=== PATIENT | male | born 1955 | race African-American/Black ===

== ENCOUNTER 2021-04-14 06:25 | Inpatient (IN) | payer OTHER, MEDICAID ==
[~2021-04-14] VITALS: Ht 177.8 cm; Wt 111.1 kg
[2021-04-14] MEDS ORDERED: ACETAMINOPHEN 325MG TABLET PO STA (07:01)
[2021-04-14 07:14] LABS: HEMATOCRIT. 46.4 % (42.0-52.0); HEMOGLOBIN. 15.4 g/dL (14.0-18.0); MEAN CORPUSCULAR HEMOGLOBIN 25.7 pg (28.0-32.0); MEAN CORPUSCULAR VOLUME 77.3 fL (80.0-94.0); MEAN PLATELET VOLUME 9.1 fl (7.4-10.4); PLATELET 226 x1000/uL (130-400); RED CELL DISTRIBUTION WIDTH 15.3 % (11.6-14.6)
[2021-04-14 07:20] LABS: CHLORIDE 101 mEq/L (98-107)
[2021-04-14 07:28] LABS: D-DIMER 1.8 mg/L FEU (<0.50); PROTHROMBIN TIME 10.9 sec (9.6-11.0)
[2021-04-14 07:29] LABS: CREATINE KINASE 817 IU/L (39-308)
[2021-04-14] MEDS ORDERED: PIPERACILLIN/TAZ 3.375G PREMIX 50 ML IV ONE (08:30)
[2021-04-14] MEDS ORDERED: VANCOMYCIN 1 G PREMIX 200 ML IV ONE (08:30)
[2021-04-14 09:23] LABS: BG BASE EXCESS 3.7 mmol/L (-2.0-2.0); BG CARBOXYHEMOGLOBIN 0.8 % (0.5-1.5); BG DEOXYHEMOGLOBIN 15.3 % (0.0-5.0); BG FRACTION INSPIRED OXYGEN 100; BG HCO3 ACT 28.1 mmol/L (22.0-26.0); BG METHEMOGLOBIN 0.2 % (0.0-1.5); BG OXYGEN SATURATION 84.5 % (92.0-98.5); BG OXYHEMOGLOBIN 83.7 % (94.0-97.0); BG PCO2 41.5 mmHg (35.0-45.0); BG PH 7.449 (7.350-7.450); BG SAMPLE SITE RIGHT RADIAL; BG TOTAL HEMOGLOBIN 15.9 g/dL (12.0-18.0); BG VENT MODE MASK - NRB
[2021-04-14] MEDS ORDERED: ONDANSETRON HCL 4MG/2ML INJ IV PRN (10:30)
[2021-04-14] MEDS ORDERED: MAGNESIUM/ALUMINUM HYDROXIDE/SIMETHICONE 30ML UDC PO PRN (10:30)
[2021-04-14] MEDS ORDERED: NA PHOS,M-B/NA PHOS,DI-BA ENEMA 118ML PR PRN (10:30)
[2021-04-14] MEDS ORDERED: GUAIFENESIN 200MG/10ML SUGAR FREE UDC PO PRN (10:30)
[2021-04-14] MEDS ORDERED: KETOROLAC 15MG/ML VIAL IV PRN (10:30)
[2021-04-14] MEDS ORDERED: NITROGLYCERIN 0.4MG TABLET SL SL PRN (10:30)
[2021-04-14] MEDS ORDERED: ALBUTEROL 6.7GM HFA INHALER ORI PRN (10:30)
[2021-04-14] MEDS ORDERED: ENOXAPARIN 40MG/0.4ML SYR SUBCUT SCH (10:30)
[2021-04-14 10:41] LABS: PLATELET ESTIMATE NORMAL
[2021-04-14 11:09] LABS: FOLIC ACID (FOLATE) SERUM >20 ng/mL ng/mL (>5.38)
[2021-04-14 11:21] LABS: VITAMIN B12 SERUM 487 pg/mL (211-911)
[2021-04-14] MEDS: GUAIFENESIN/DM 600MG/30MG ER TAB 12HR PO SCH ×2 (11:52→21:48)
[2021-04-14] MEDS: DEXAMETHASONE 10 MG/ML VIAL IV SCH (11:52)
[2021-04-14] MEDS: ACETAMINOPHEN 325MG TABLET PO PRN (11:53)
[2021-04-14] MEDS: ASPIRIN 325MG EC TABLET PO SCH (11:53)
[2021-04-14] MEDS ORDERED: CEFTRIAXONE 1 G PREMIX 50 ML IV SCH (12:00)
[2021-04-14] MEDS ORDERED: AZITHROMYCIN 500 MG in DEXT 5% WATER 250 ML IV SCH (12:00)
[2021-04-14] MEDS: ZINC SULFATE 220 MG ( 50 ) CAPSULE PO SCH (13:16)
[2021-04-14] MEDS: ENOXAPARIN 30MG/0.3ML SYR SUBCUT SCH ×2 (13:16→21:55)
[2021-04-14] MEDS: CHOLECALCIFEROL (D3) 1000 UNIT TABLET PO SCH (13:17)
[2021-04-14] MEDS: INSULIN LISPRO 100 UNITS/ML SUBCUT SCH ×3 (13:57→21:50)
[2021-04-14] MEDS: BLOOD SUGAR DIAGNOSTIC STRIP TEST SCH ×3 (13:57→21:45)
[2021-04-14] MEDS: ALBUTEROL 6.7GM HFA INHALER ORI SCH ×2 (15:25→19:24)
[2021-04-14 16:43] LABS: CLARITY URINE TURBID (CLEAR); COLOR URINE DARK YELLOW (YELLOW); KETONES URINE 1+ (NEGATIVE); LEUKOCYTE ESTERASE URINE TRACE (NEGATIVE); NITRITE URINE NEGATIVE (NEGATIVE); OCCULT BLOOD URINE 3+ (NEGATIVE); PH URINE 5.5 (4.5-8.0); PROTEIN URINE 4+ (NEGATIVE); SPECIFIC GRAVITY URINE 1.053 (1.005-1.030)
[2021-04-14 16:54] LABS: *AMPHETAMINES SCREEN URINE NEGATIVE (NEGATIVE)
[2021-04-14 16:55] LABS: *BARBITURATES SCREEN URINE NEGATIVE (NEGATIVE); *BENZODIAZEPINES SCREEN URINE NEGATIVE (NEGATIVE); *COCAINE SCREEN URINE NEGATIVE (NEGATIVE); CANNABINOID URINE SCREEN NEGATIVE (NEGATIVE); METHADONE URINE SCREEN NEGATIVE (NEGATIVE); OPIATES URINE SCREEN NEGATIVE (NEGATIVE); PHENCYCLIDINE URINE SCREEN NEGATIVE (NEGATIVE)
[2021-04-14 17:28] LABS: CREATINE KINASE 635 IU/L (39-308)
[2021-04-14 17:29] LABS: CREATINE KINASE MB FRACTION 1.8 ng/mL (0.5-3.6)
[2021-04-14] MEDS ORDERED: ZOLPIDEM TARTRATE 5MG TABLET PO PRN (21:00)
[2021-04-14] MEDS: ASCORBIC ACID 500 MG TABLET PO SCH (21:48)
[2021-04-14] MEDS: FAMOTIDINE 20MG TABLET PO SCH (21:48)
[2021-04-14 23:58] LABS: CREATINE KINASE 577 IU/L (39-308)
[2021-04-15] VITALS (46 sets, daily range): BP systolic 119–170; BP diastolic 34–104
[2021-04-15] MEDS: ALBUTEROL 6.7GM HFA INHALER ORI SCH ×4 (00:19→20:40)
[2021-04-15 00:34] LABS: CREATINE KINASE MB FRACTION 1.9 ng/mL (0.5-3.6)
[2021-04-15] MEDS: ACETAMINOPHEN 325MG TABLET PO PRN ×2 (01:52→08:52)
[2021-04-15 05:25] LABS: CHLORIDE 101 mEq/L (98-107)
[2021-04-15 05:26] LABS: HEMATOCRIT. 47.4 % (42.0-52.0); HEMOGLOBIN. 15.6 g/dL (14.0-18.0); MEAN CORPUSCULAR HEMOGLOBIN 26.1 pg (28.0-32.0); MEAN CORPUSCULAR VOLUME 79.4 fL (80.0-94.0); MEAN PLATELET VOLUME 10.3 fl (7.4-10.4); PLATELET 178 x1000/uL (130-400); RED BLOOD CELL COUNT 5.96 mill/uL (4.7-6.1); RED CELL DISTRIBUTION WIDTH 15.7 % (11.6-14.6)
[2021-04-15] MEDS: CLONIDINE 0.1MG TABLET PO PRN (05:32)
[2021-04-15 05:36] LABS: PHOSPHORUS 2.7 mg/dL (2.5-4.9)
[2021-04-15] MEDS: BLOOD SUGAR DIAGNOSTIC STRIP TEST SCH ×4 (06:42→21:10)
[2021-04-15] MEDS: INSULIN LISPRO 100 UNITS/ML SUBCUT SCH ×4 (06:47→21:16)
[2021-04-15] MEDS ORDERED: GLIP5TAB12 PO (07:34)
[2021-04-15] MEDS ORDERED: LOSA1TAB34 PO (07:34)
[2021-04-15] MEDS ORDERED: AMLO2.5T45 PO (07:34)
[2021-04-15] MEDS ORDERED: METF-416 PO (07:39)
[2021-04-15] MEDS: CHOLECALCIFEROL (D3) 1000 UNIT TABLET PO SCH (08:52)
[2021-04-15] MEDS: ASCORBIC ACID 500 MG TABLET PO SCH ×2 (08:52→21:03)
[2021-04-15] MEDS: ZINC SULFATE 220 MG ( 50 ) CAPSULE PO SCH (08:52)
[2021-04-15] MEDS: ASPIRIN 325MG EC TABLET PO SCH (08:52)
[2021-04-15] MEDS: DEXAMETHASONE 10 MG/ML VIAL IV SCH (08:52)
[2021-04-15] MEDS: FAMOTIDINE 20MG TABLET PO SCH ×2 (08:52→21:03)
[2021-04-15] MEDS: GUAIFENESIN/DM 600MG/30MG ER TAB 12HR PO SCH ×2 (08:52→21:03)
[2021-04-15] MEDS: ENOXAPARIN 30MG/0.3ML SYR SUBCUT SCH ×2 (08:54→21:03)
[2021-04-15 10:40] LABS: PLATELET ESTIMATE NORMAL
[2021-04-15 10:42] LABS: BG BASE EXCESS 3.6 mmol/L (-2.0-2.0); BG CARBOXYHEMOGLOBIN 0.6 % (0.5-1.5); BG DEOXYHEMOGLOBIN 9.8 % (0.0-5.0); BG FRACTION INSPIRED OXYGEN 100; BG HCO3 ACT 26.9 mmol/L (22.0-26.0); BG METHEMOGLOBIN 0.3 % (0.0-1.5); BG OXYGEN SATURATION 90.1 % (92.0-98.5); BG OXYHEMOGLOBIN 89.3 % (94.0-97.0); BG PCO2 36.5 mmHg (35.0-45.0); BG PH 7.485 (7.350-7.450); BG PO2 54.9 mmHg (75.0-100.0); BG SAMPLE SITE RIGHT RADIAL; BG VENT MODE MASK - CPAP
[2021-04-15] MEDS: CEFTRIAXONE 1,000 MG in DEXTROSE 5% WATER 50 ML IV SCH (12:46)
[2021-04-15] MEDS: AZITHROMYCIN 500 MG in DEXT 5% WATER 250 ML IV SCH (12:46)
[2021-04-15] MEDS ORDERED: INSULIN LISPRO 100 UNITS/ML SUBCUT SCH (21:00)
[2021-04-16] VITALS (35 sets, daily range): BP systolic 105–160; BP diastolic 52–117
[2021-04-16] MEDS: ALBUTEROL 6.7GM HFA INHALER ORI SCH ×4 (01:06→18:00)
[2021-04-16] MEDS: CLONIDINE 0.1MG TABLET PO PRN ×2 (02:41→09:18)
[2021-04-16] MEDS: BLOOD SUGAR DIAGNOSTIC STRIP TEST SCH ×4 (06:09→21:28)
[2021-04-16] MEDS: INSULIN LISPRO 100 UNITS/ML SUBCUT SCH ×4 (06:14→21:23)
[2021-04-16] MEDS: ASPIRIN 325MG EC TABLET PO SCH (09:18)
[2021-04-16] MEDS: GUAIFENESIN/DM 600MG/30MG ER TAB 12HR PO SCH ×2 (09:18→21:26)
[2021-04-16] MEDS: FAMOTIDINE 20MG TABLET PO SCH ×2 (09:18→21:26)
[2021-04-16] MEDS: ENOXAPARIN 30MG/0.3ML SYR SUBCUT SCH ×2 (09:19→21:28)
[2021-04-16] MEDS: CHOLECALCIFEROL (D3) 1000 UNIT TABLET PO SCH (09:19)
[2021-04-16] MEDS: DOCUSATE SODIUM 100MG CAPSULE PO PRN (09:19)
[2021-04-16] MEDS: ASCORBIC ACID 500 MG TABLET PO SCH ×2 (09:20→21:26)
[2021-04-16] MEDS: DEXAMETHASONE 10 MG/ML VIAL IV SCH (09:20)
[2021-04-16] MEDS: ZINC SULFATE 220 MG ( 50 ) CAPSULE PO SCH (09:20)
[2021-04-16] MEDS: AZITHROMYCIN 500 MG in DEXT 5% WATER 250 ML IV SCH (11:59)
[2021-04-16] MEDS: CEFTRIAXONE 1,000 MG in DEXTROSE 5% WATER 50 ML IV SCH (12:05)
[2021-04-16] MEDS: NITROGLYCERIN OINT 1GM/INCH UDPKT TD SCH ×2 (14:30→21:26)
[2021-04-17] VITALS (32 sets, daily range): BP systolic 125–202; BP diastolic 59–121
[2021-04-17] MEDS: CLONIDINE 0.1MG TABLET PO PRN (05:17)
[2021-04-17] MEDS: NITROGLYCERIN OINT 1GM/INCH UDPKT TD SCH ×3 (05:40→21:09)
[2021-04-17] MEDS: INSULIN LISPRO 100 UNITS/ML SUBCUT SCH ×4 (07:00→20:45)
[2021-04-17] MEDS: BLOOD SUGAR DIAGNOSTIC STRIP TEST SCH ×4 (07:14→20:46)
[2021-04-17] MEDS: ALBUTEROL 6.7GM HFA INHALER ORI SCH ×3 (08:20→15:03)
[2021-04-17] MEDS: GUAIFENESIN/DM 600MG/30MG ER TAB 12HR PO SCH ×2 (08:53→20:44)
[2021-04-17] MEDS: ZINC SULFATE 220 MG ( 50 ) CAPSULE PO SCH (08:53)
[2021-04-17] MEDS: DEXAMETHASONE 10 MG/ML VIAL IV SCH (08:53)
[2021-04-17] MEDS: ENOXAPARIN 30MG/0.3ML SYR SUBCUT SCH ×2 (08:53→20:43)
[2021-04-17] MEDS: CHOLECALCIFEROL (D3) 1000 UNIT TABLET PO SCH (08:53)
[2021-04-17] MEDS: FAMOTIDINE 20MG TABLET PO SCH ×2 (08:54→20:44)
[2021-04-17] MEDS: ASPIRIN 325MG EC TABLET PO SCH (08:54)
[2021-04-17] MEDS: ASCORBIC ACID 500 MG TABLET PO SCH ×2 (08:54→20:44)
[2021-04-17 09:41] LABS: BG BASE EXCESS 2.5 mmol/L (-2.0-2.0); BG CARBOXYHEMOGLOBIN 0.3 % (0.5-1.5); BG DEOXYHEMOGLOBIN 21.1 % (0.0-5.0); BG FRACTION INSPIRED OXYGEN 100; BG HCO3 ACT 25.3 mmol/L (22.0-26.0); BG METHEMOGLOBIN 0.3 % (0.0-1.5); BG OXYGEN SATURATION 78.8 % (92.0-98.5); BG OXYHEMOGLOBIN 78.3 % (94.0-97.0); BG PCO2 33.8 mmHg (35.0-45.0); BG PH 7.492 (7.350-7.450); BG PO2 41.3 mmHg (75.0-100.0); BG SAMPLE SITE RIGHT BRACHIAL; BG TOTAL HEMOGLOBIN 15.5 g/dL (12.0-18.0); BG VENT MODE MASK - BIPAP
[2021-04-17] MEDS: AZITHROMYCIN 500 MG in DEXT 5% WATER 250 ML IV SCH (11:44)
[2021-04-17 12:01] LABS: BG BASE EXCESS 4.1 mmol/L (-2.0-2.0); BG CARBOXYHEMOGLOBIN 0.7 % (0.5-1.5); BG DEOXYHEMOGLOBIN 14.3 % (0.0-5.0); BG FRACTION INSPIRED OXYGEN 100; BG HCO3 ACT 27.7 mmol/L (22.0-26.0); BG METHEMOGLOBIN 0.2 % (0.0-1.5); BG OXYGEN SATURATION 85.6 % (92.0-98.5); BG OXYHEMOGLOBIN 84.8 % (94.0-97.0); BG PCO2 38.1 mmHg (35.0-45.0); BG PH 7.479 (7.350-7.450); BG PO2 50.3 mmHg (75.0-100.0); BG SAMPLE SITE RIGHT BRACHIAL; BG VENT MODE MASK - BIPAP
[2021-04-17] MEDS: CEFTRIAXONE 1,000 MG in DEXTROSE 5% WATER 50 ML IV SCH (13:47)
[2021-04-18] VITALS (66 sets, daily range): BP systolic 56–158; BP diastolic 19–105
[2021-04-18] MEDS ORDERED: LORAZEPAM 2MG/ML CPJ IV ONE (03:30)
[2021-04-18 05:26] LABS: HEMATOCRIT. 49.2 % (42.0-52.0); HEMOGLOBIN. 16.6 g/dL (14.0-18.0); MEAN CORPUSCULAR HEMOGLOBIN 28.3 pg (28.0-32.0); MEAN CORPUSCULAR VOLUME 83.8 fL (80.0-94.0); RED BLOOD CELL COUNT 5.87 mill/uL (4.7-6.1); RED CELL DISTRIBUTION WIDTH 15.5 % (11.6-14.6)
[2021-04-18 05:32] LABS: CHLORIDE 101 mEq/L (98-107)
[2021-04-18] MEDS ORDERED: ADENOSINE 3 MG/ML 2ML VIAL IV SCH (06:45)
[2021-04-18] MEDS: PROPOFOL 10MG/ML 100ML 100 ML IV PRN ×3 (06:55→09:37)
[2021-04-18] MEDS: BLOOD SUGAR DIAGNOSTIC STRIP TEST SCH ×4 (07:19→21:00)
[2021-04-18] MEDS: NITROGLYCERIN OINT 1GM/INCH UDPKT TD SCH (07:28)
[2021-04-18] MEDS: INSULIN LISPRO 100 UNITS/ML SUBCUT SCH ×4 (07:29→22:11)
[2021-04-18] MEDS ORDERED: SUCCINYLCHOLINE CHLORIDE 200MG/10ML IV ONE (08:04)
[2021-04-18] MEDS ORDERED: ETOMIDATE 2MG/ML 10ML VIAL IV ONE ×2 (08:04→08:42)
[2021-04-18] MEDS: DILTIAZEM HCL 30MG TABLET PO SCH ×3 (08:30→22:00)
[2021-04-18] MEDS ORDERED: VECURONIUM BROMIDE 10 MG/VIAL IV ONE (08:42)
[2021-04-18] MEDS: CHOLECALCIFEROL (D3) 1000 UNIT TABLET PO SCH (09:00)
[2021-04-18] MEDS: FAMOTIDINE 20MG TABLET PO SCH ×2 (09:00→22:08)
[2021-04-18] MEDS: ZINC SULFATE 220 MG ( 50 ) CAPSULE PO SCH (09:00)
[2021-04-18] MEDS: ASCORBIC ACID 500 MG TABLET PO SCH ×2 (09:00→22:08)
[2021-04-18] MEDS: ASPIRIN 325MG EC TABLET PO SCH (09:00)
[2021-04-18] MEDS: GUAIFENESIN/DM 600MG/30MG ER TAB 12HR PO SCH ×2 (09:00→22:07)
[2021-04-18] MEDS: PHENYLEPHRINE 100 MG in DEXT 5% WATER 240 ML IV PRN ×2 (09:15→16:04)
[2021-04-18] MEDS: FENTANYL CITRATE/PF 2,500 MCG in SODIUM CHLORIDE 0.9% 200 ML IV PRN ×2 (09:16→21:39)
[2021-04-18 10:10] LABS: BG CARBOXYHEMOGLOBIN 0.3 % (0.5-1.5); BG DEOXYHEMOGLOBIN 17.5 % (0.0-5.0); BG FRACTION INSPIRED OXYGEN 100; BG HCO3 ACT 28.5 mmol/L (22.0-26.0); BG METHEMOGLOBIN 0.3 % (0.0-1.5); BG OXYGEN SATURATION 82.4 % (92.0-98.5); BG OXYHEMOGLOBIN 81.9 % (94.0-97.0); BG PCO2 56.9 mmHg (35.0-45.0); BG PH 7.318 (7.350-7.450); BG PO2 53.7 mmHg (75.0-100.0); BG TOTAL HEMOGLOBIN 15.1 g/dL (12.0-18.0); BG TOTAL RESPIRATORY RATE 25 b/min; BG VENT MODE VENT - AC
[2021-04-18 10:16] LABS: PLATELET 504 x1000/uL (130-400)
[2021-04-18 10:17] LABS: PLATELET ESTIMATE INCREASED
[2021-04-18] MEDS: MIDAZOLAM HCL 100 MG in SODIUM CHLORIDE 0.9% 80 ML IV PRN ×2 (10:50→21:37)
[2021-04-18] MEDS ORDERED: VASOPRESSIN 20 UNIT in SODIUM CHLORIDE 0.9% 99 ML IV PRN (11:00)
[2021-04-18] MEDS: AZITHROMYCIN 500 MG in DEXT 5% WATER 250 ML IV SCH (12:21)
[2021-04-18] MEDS: DEXAMETHASONE 10 MG/ML VIAL IV SCH (12:41)
[2021-04-18] MEDS: ENOXAPARIN 30MG/0.3ML SYR SUBCUT SCH ×2 (12:41→22:09)
[2021-04-18] MEDS: CEFTRIAXONE 1,000 MG in DEXTROSE 5% WATER 50 ML IV SCH (12:50)
[2021-04-18] MEDS: IPRATROPIUM BROMIDE (0.02%) 0.5MG/2.5ML NEB HHN SCH ×3 (13:00→21:19)
[2021-04-18 15:07] LABS: BG BASE EXCESS 1.9 mmol/L (-2.0-2.0); BG CARBOXYHEMOGLOBIN 0.7 % (0.5-1.5); BG DEOXYHEMOGLOBIN 13.3 % (0.0-5.0); BG FRACTION INSPIRED OXYGEN 100; BG HCO3 ACT 28.3 mmol/L (22.0-26.0); BG METHEMOGLOBIN 0.3 % (0.0-1.5); BG OXYGEN SATURATION 86.6 % (92.0-98.5); BG OXYHEMOGLOBIN 85.7 % (94.0-97.0); BG PCO2 50.9 mmHg (35.0-45.0); BG PH 7.363 (7.350-7.450); BG PO2 55.5 mmHg (75.0-100.0); BG SAMPLE SITE LEFT RADIAL; BG TOTAL HEMOGLOBIN 15.3 g/dL (12.0-18.0); BG TOTAL RESPIRATORY RATE 28 b/min; BG VENT MODE VENT - AC
[2021-04-18] MEDS: ATORVASTATIN CALCIUM 20MG TABLET PO SCH (22:08)
[2021-04-19] VITALS (89 sets, daily range): BP systolic 83–163; BP diastolic 47–96
[2021-04-19] MEDS: IPRATROPIUM BROMIDE (0.02%) 0.5MG/2.5ML NEB HHN SCH ×6 (01:16→20:39)
[2021-04-19 05:57] LABS: HEMATOCRIT. 40.8 % (42.0-52.0); HEMOGLOBIN. 13.7 g/dL (14.0-18.0); MEAN CORPUSCULAR HEMOGLOBIN 29.8 pg (28.0-32.0); MEAN CORPUSCULAR VOLUME 88.7 fL (80.0-94.0); PLATELET 335 x1000/uL (130-400); RED CELL DISTRIBUTION WIDTH 16.4 % (11.6-14.6)
[2021-04-19] MEDS: DILTIAZEM HCL 30MG TABLET PO SCH ×3 (06:00→21:13)
[2021-04-19 06:02] LABS: CHLORIDE 105 mEq/L (98-107)
[2021-04-19] MEDS: BLOOD SUGAR DIAGNOSTIC STRIP TEST SCH ×4 (06:30→21:40)
[2021-04-19] MEDS: INSULIN LISPRO 100 UNITS/ML SUBCUT SCH ×4 (06:34→21:40)
[2021-04-19 07:53] LABS: BG BASE EXCESS 1.5 mmol/L (-2.0-2.0); BG DEOXYHEMOGLOBIN 0.5 % (0.0-5.0); BG HCO3 ACT 26.3 mmol/L (22.0-26.0); BG OXYGEN SATURATION 99.5 % (92.0-98.5); BG OXYHEMOGLOBIN 99.5 % (94.0-97.0); BG PCO2 42.1 mmHg (35.0-45.0); BG PH 7.414 (7.350-7.450); BG PO2 288.4 mmHg (75.0-100.0); BG SAMPLE SITE RIGHT RADIAL; BG TOTAL HEMOGLOBIN 14.7 g/dL (12.0-18.0); BG VENT MODE VENT- PRVC
[2021-04-19] MEDS: ASPIRIN 325MG EC TABLET PO SCH (09:18)
[2021-04-19] MEDS: FAMOTIDINE 20MG TABLET PO SCH ×2 (09:18→21:12)
[2021-04-19] MEDS: CHOLECALCIFEROL (D3) 1000 UNIT TABLET PO SCH (09:18)
[2021-04-19] MEDS: GUAIFENESIN/DM 600MG/30MG ER TAB 12HR PO SCH ×2 (09:18→21:12)
[2021-04-19] MEDS: DEXAMETHASONE 10 MG/ML VIAL IV SCH (09:19)
[2021-04-19] MEDS: ENOXAPARIN 30MG/0.3ML SYR SUBCUT SCH ×2 (09:19→21:13)
[2021-04-19] MEDS: ZINC SULFATE 220 MG ( 50 ) CAPSULE PO SCH (09:19)
[2021-04-19] MEDS: ASCORBIC ACID 500 MG TABLET PO SCH ×2 (09:19→21:12)
[2021-04-19] MEDS: PHENYLEPHRINE 100 MG in DEXT 5% WATER 240 ML IV PRN (09:23)
[2021-04-19] MEDS ORDERED: SODIUM CHLORIDE 0.9% 500 ML IV ONE (12:00)
[2021-04-19] MEDS: FENTANYL CITRATE/PF 2,500 MCG in SODIUM CHLORIDE 0.9% 200 ML IV PRN (13:28)
[2021-04-19 20:34] LABS: PLATELET ESTIMATE NORMAL
[2021-04-19] MEDS: ATORVASTATIN CALCIUM 20MG TABLET PO SCH (21:12)
[2021-04-20] VITALS (96 sets, daily range): BP systolic 97–151; BP diastolic 44–119
[2021-04-20] MEDS: IPRATROPIUM BROMIDE (0.02%) 0.5MG/2.5ML NEB HHN SCH ×6 (00:48→21:11)
[2021-04-20] MEDS: MIDAZOLAM HCL 100 MG in SODIUM CHLORIDE 0.9% 80 ML IV PRN ×2 (01:51→17:02)
[2021-04-20] MEDS: ACETAMINOPHEN 325MG TABLET PO PRN (03:20)
[2021-04-20] MEDS: FENTANYL CITRATE/PF 2,500 MCG in SODIUM CHLORIDE 0.9% 200 ML IV PRN ×2 (03:22→19:20)
[2021-04-20] MEDS: DILTIAZEM HCL 30MG TABLET PO SCH ×3 (06:00→21:20)
[2021-04-20 06:03] LABS: CHLORIDE 108 mEq/L (98-107)
[2021-04-20] MEDS: BLOOD SUGAR DIAGNOSTIC STRIP TEST SCH ×4 (06:26→21:17)
[2021-04-20] MEDS: INSULIN LISPRO 100 UNITS/ML SUBCUT SCH ×4 (06:26→21:19)
[2021-04-20 07:46] LABS: HEMATOCRIT. 39.6 % (42.0-52.0); HEMOGLOBIN. 13.1 g/dL (14.0-18.0); MEAN CORPUSCULAR HEMOGLOBIN 27.5 pg (28.0-32.0); PLATELET 311 x1000/uL (130-400); RED BLOOD CELL COUNT 4.77 mill/uL (4.7-6.1); RED CELL DISTRIBUTION WIDTH 15.7 % (11.6-14.6)
[2021-04-20] MEDS: DEXAMETHASONE 10 MG/ML VIAL IV SCH (08:40)
[2021-04-20] MEDS: ASCORBIC ACID 500 MG TABLET PO SCH ×2 (08:41→21:16)
[2021-04-20] MEDS: ASPIRIN 81MG TABLET PO SCH (08:41)
[2021-04-20] MEDS: FAMOTIDINE 20MG TABLET PO SCH ×2 (08:41→21:16)
[2021-04-20] MEDS: ENOXAPARIN 30MG/0.3ML SYR SUBCUT SCH ×2 (08:41→21:17)
[2021-04-20] MEDS: CHOLECALCIFEROL (D3) 1000 UNIT TABLET PO SCH (08:41)
[2021-04-20] MEDS: ZINC SULFATE 220 MG ( 50 ) CAPSULE PO SCH (08:41)
[2021-04-20] MEDS: GUAIFENESIN/DM 600MG/30MG ER TAB 12HR PO SCH ×2 (08:46→21:16)
[2021-04-20] MEDS ORDERED: ASPIRIN 81MG EC TABLET PO SCH (09:00)
[2021-04-20 09:19] LABS: BG BASE EXCESS 3.9 mmol/L (-2.0-2.0); BG CARBOXYHEMOGLOBIN 1.2 % (0.5-1.5); BG DEOXYHEMOGLOBIN 4.9 % (0.0-5.0); BG FRACTION INSPIRED OXYGEN 50; BG HCO3 ACT 29.8 mmol/L (22.0-26.0); BG METHEMOGLOBIN 0.2 % (0.0-1.5); BG OXYHEMOGLOBIN 93.7 % (94.0-97.0); BG PCO2 49.7 mmHg (35.0-45.0); BG PH 7.396 (7.350-7.450); BG PO2 78.2 mmHg (75.0-100.0); BG SAMPLE SITE RIGHT RADIAL; BG TOTAL HEMOGLOBIN 14.1 g/dL (12.0-18.0); BG TOTAL RESPIRATORY RATE 25 b/min; BG VENT MODE VENT- PRVC
[2021-04-20] MEDS ORDERED: BISACODYL 5MG TABLET PO SCH (10:45)
[2021-04-20] MEDS ORDERED: LACTULOSE 20G/30ML UDC PO NR (11:00)
[2021-04-20] MEDS: BISACODYL 10MG SUPP PR SCH (11:49)
[2021-04-20 13:52] LABS: PLATELET ESTIMATE NORMAL
[2021-04-20] MEDS: ATORVASTATIN CALCIUM 20MG TABLET PO SCH (21:16)
[2021-04-21] VITALS (96 sets, daily range): BP systolic 98–143; BP diastolic 55–80
[2021-04-21] MEDS: IPRATROPIUM BROMIDE (0.02%) 0.5MG/2.5ML NEB HHN SCH ×6 (00:33→21:08)
[2021-04-21] MEDS: DILTIAZEM HCL 30MG TABLET PO SCH (06:00)
[2021-04-21] MEDS: MIDAZOLAM HCL 100 MG in SODIUM CHLORIDE 0.9% 80 ML IV PRN ×2 (06:07→07:59)
[2021-04-21] MEDS: BLOOD SUGAR DIAGNOSTIC STRIP TEST SCH ×4 (06:14→20:27)
[2021-04-21] MEDS: INSULIN LISPRO 100 UNITS/ML SUBCUT SCH ×4 (06:15→20:31)
[2021-04-21 06:58] LABS: HEMATOCRIT. 37.9 % (42.0-52.0); HEMOGLOBIN. 12.4 g/dL (14.0-18.0); MEAN CORPUSCULAR HEMOGLOBIN 26.5 pg (28.0-32.0); MEAN CORPUSCULAR VOLUME 80.8 fL (80.0-94.0); MEAN PLATELET VOLUME 8.7 fl (7.4-10.4); PLATELET 290 x1000/uL (130-400); RED BLOOD CELL COUNT 4.69 mill/uL (4.7-6.1); RED CELL DISTRIBUTION WIDTH 16.1 % (11.6-14.6)
[2021-04-21 07:42] LABS: PLATELET ESTIMATE NORMAL
[2021-04-21 08:03] LABS: BG BASE EXCESS 4.4 mmol/L (-2.0-2.0); BG CARBOXYHEMOGLOBIN 0.6 % (0.5-1.5); BG DEOXYHEMOGLOBIN 4.7 % (0.0-5.0); BG HCO3 ACT 30.2 mmol/L (22.0-26.0); BG METHEMOGLOBIN 0.1 % (0.0-1.5); BG OXYGEN SATURATION 95.3 % (92.0-98.5); BG OXYHEMOGLOBIN 94.6 % (94.0-97.0); BG PCO2 49.9 mmHg (35.0-45.0); BG PO2 78.4 mmHg (75.0-100.0); BG SAMPLE SITE RIGHT RADIAL; BG TOTAL HEMOGLOBIN 13.5 g/dL (12.0-18.0); BG VENT MODE VENT- PRVC
[2021-04-21] MEDS: BISACODYL 10MG SUPP PR SCH ×2 (09:00→09:12)
[2021-04-21] MEDS: DEXAMETHASONE 10 MG/ML VIAL IV SCH (09:11)
[2021-04-21] MEDS: FAMOTIDINE 20MG TABLET PO SCH ×2 (09:12→20:31)
[2021-04-21] MEDS: CHOLECALCIFEROL (D3) 1000 UNIT TABLET PO SCH (09:12)
[2021-04-21] MEDS: ZINC SULFATE 220 MG ( 50 ) CAPSULE PO SCH (09:12)
[2021-04-21] MEDS: GUAIFENESIN/DM 600MG/30MG ER TAB 12HR PO SCH ×2 (09:12→20:31)
[2021-04-21] MEDS: ENOXAPARIN 30MG/0.3ML SYR SUBCUT SCH (09:12)
[2021-04-21] MEDS: ASCORBIC ACID 500 MG TABLET PO SCH ×2 (09:12→20:31)
[2021-04-21] MEDS: ASPIRIN 81MG TABLET PO SCH (09:12)
[2021-04-21] MEDS: FENTANYL CITRATE/PF 2,500 MCG in SODIUM CHLORIDE 0.9% 200 ML IV PRN (09:19)
[2021-04-21] MEDS ORDERED: SODIUM CHLORIDE 0.9% 500 ML IV ONE (09:45)
[2021-04-21] MEDS: ATORVASTATIN CALCIUM 20MG TABLET PO SCH (20:31)
[2021-04-22] VITALS (97 sets, daily range): BP systolic 101–171; BP diastolic 55–109
[2021-04-22] MEDS: IPRATROPIUM BROMIDE (0.02%) 0.5MG/2.5ML NEB HHN SCH ×6 (00:10→20:54)
[2021-04-22] MEDS: MIDAZOLAM HCL 100 MG in SODIUM CHLORIDE 0.9% 80 ML IV PRN ×2 (00:38→15:34)
[2021-04-22] MEDS: FENTANYL CITRATE/PF 2,500 MCG in SODIUM CHLORIDE 0.9% 200 ML IV PRN ×2 (03:10→17:44)
[2021-04-22 05:26] LABS: BASOPHILS % 0.2 % (0.0-2.0); EOSINOPHILS % 0.1 % (0.0-5.0); HEMATOCRIT. 33.9 % (42.0-52.0); HEMOGLOBIN. 11.7 g/dL (14.0-18.0); LYMPHOCYTES % 10.5 % (20.0-50.0); MEAN CORPUSCULAR HEMOGLOBIN 31.7 pg (28.0-32.0); MEAN CORPUSCULAR VOLUME 91.8 fL (80.0-94.0); MEAN PLATELET VOLUME 9.4 fl (7.4-10.4); NEUTROPHILS % 83.2 % (40.0-76.0); PLATELET 325 x1000/uL (130-400); RED BLOOD CELL COUNT 3.69 mill/uL (4.7-6.1); RED CELL DISTRIBUTION WIDTH 15.7 % (11.6-14.6)
[2021-04-22] MEDS: BLOOD SUGAR DIAGNOSTIC STRIP TEST SCH ×4 (06:05→21:46)
[2021-04-22] MEDS: INSULIN LISPRO 100 UNITS/ML SUBCUT SCH ×4 (06:08→22:08)
[2021-04-22] MEDS: DEXAMETHASONE 10 MG/ML VIAL IV SCH (08:18)
[2021-04-22] MEDS: ASCORBIC ACID 500 MG TABLET PO SCH ×2 (08:18→22:07)
[2021-04-22] MEDS: ASPIRIN 81MG TABLET PO SCH (08:19)
[2021-04-22] MEDS: CHOLECALCIFEROL (D3) 1000 UNIT TABLET PO SCH (08:19)
[2021-04-22] MEDS: GUAIFENESIN/DM 600MG/30MG ER TAB 12HR PO SCH ×2 (08:19→22:07)
[2021-04-22] MEDS: ZINC SULFATE 220 MG ( 50 ) CAPSULE PO SCH (08:19)
[2021-04-22] MEDS: FAMOTIDINE 20MG TABLET PO SCH ×2 (08:19→22:07)
[2021-04-22 09:50] LABS: BG BASE EXCESS 6.2 mmol/L (-2.0-2.0); BG DEOXYHEMOGLOBIN 8.8 % (0.0-5.0); BG FRACTION INSPIRED OXYGEN 50; BG METHEMOGLOBIN 0.3 % (0.0-1.5); BG OXYGEN SATURATION 91.1 % (92.0-98.5); BG OXYHEMOGLOBIN 89.9 % (94.0-97.0); BG PCO2 51.3 mmHg (35.0-45.0); BG PH 7.413 (7.350-7.450); BG PO2 63.3 mmHg (75.0-100.0); BG SAMPLE SITE RIGHT RADIAL; BG TOTAL HEMOGLOBIN 12.7 g/dL (12.0-18.0); BG VENT MODE AC/PRVC
[2021-04-22] MEDS: SODIUM CHLORIDE 0.45% 1,000 ML IV SCH (10:38)
[2021-04-22] MEDS: CLONIDINE 0.1MG TABLET PO PRN (14:00)
[2021-04-22] MEDS: PROPOFOL 10MG/ML 100ML 100 ML IV PRN ×2 (14:48→19:19)
[2021-04-22] MEDS: ATORVASTATIN CALCIUM 20MG TABLET PO SCH (22:07)
[2021-04-23] VITALS (96 sets, daily range): BP systolic 107–169; BP diastolic 53–105
[2021-04-23] MEDS: IPRATROPIUM BROMIDE (0.02%) 0.5MG/2.5ML NEB HHN SCH ×6 (00:55→21:00)
[2021-04-23] MEDS: MIDAZOLAM HCL 100 MG in SODIUM CHLORIDE 0.9% 80 ML IV PRN ×2 (02:17→14:32)
[2021-04-23] MEDS: FENTANYL CITRATE/PF 2,500 MCG in SODIUM CHLORIDE 0.9% 200 ML IV PRN ×3 (03:01→20:26)
[2021-04-23] MEDS: SODIUM CHLORIDE 0.45% 1,000 ML IV SCH (03:02)
[2021-04-23 05:39] LABS: HEMATOCRIT. 32.1 % (42.0-52.0); HEMOGLOBIN. 11.2 g/dL (14.0-18.0); MEAN CORPUSCULAR HEMOGLOBIN 32.5 pg (28.0-32.0); MEAN CORPUSCULAR VOLUME 93.2 fL (80.0-94.0); MEAN PLATELET VOLUME 9.4 fl (7.4-10.4); PLATELET 292 x1000/uL (130-400); RED BLOOD CELL COUNT 3.44 mill/uL (4.7-6.1); RED CELL DISTRIBUTION WIDTH 15.9 % (11.6-14.6)
[2021-04-23] MEDS: BLOOD SUGAR DIAGNOSTIC STRIP TEST SCH ×4 (06:06→20:25)
[2021-04-23] MEDS: INSULIN LISPRO 100 UNITS/ML SUBCUT SCH ×4 (06:19→20:25)
[2021-04-23 07:56] LABS: PLATELET ESTIMATE NORMAL
[2021-04-23 08:14] LABS: BG BASE EXCESS 3.8 mmol/L (-2.0-2.0); BG CARBOXYHEMOGLOBIN 0.6 % (0.5-1.5); BG DEOXYHEMOGLOBIN 21.2 % (0.0-5.0); BG HCO3 ACT 29.4 mmol/L (22.0-26.0); BG METHEMOGLOBIN 0.3 % (0.0-1.5); BG OXYGEN SATURATION 78.6 % (92.0-98.5); BG OXYHEMOGLOBIN 77.9 % (94.0-97.0); BG PCO2 48.7 mmHg (35.0-45.0); BG PH 7.399 (7.350-7.450); BG SAMPLE SITE RIGHT RADIAL; BG TOTAL HEMOGLOBIN 12.4 g/dL (12.0-18.0); BG VENT MODE VENT- PRVC
[2021-04-23] MEDS: CHOLECALCIFEROL (D3) 1000 UNIT TABLET PO SCH (08:17)
[2021-04-23] MEDS: FAMOTIDINE 20MG TABLET PO SCH ×2 (08:17→20:24)
[2021-04-23] MEDS: DEXAMETHASONE 10 MG/ML VIAL IV SCH (08:17)
[2021-04-23] MEDS: GUAIFENESIN/DM 600MG/30MG ER TAB 12HR PO SCH ×2 (08:17→20:27)
[2021-04-23] MEDS: DOCUSATE SODIUM 100MG CAPSULE PO PRN (08:17)
[2021-04-23] MEDS: ZINC SULFATE 220 MG ( 50 ) CAPSULE PO SCH (08:17)
[2021-04-23] MEDS: ASCORBIC ACID 500 MG TABLET PO SCH ×2 (08:17→20:24)
[2021-04-23] MEDS: ASPIRIN 81MG TABLET PO SCH (08:17)
[2021-04-23] MEDS ORDERED: SODIUM POLYSTYRENE SULFONATE 15 G/60 ML BOT PO SCH (10:15)
[2021-04-23] MEDS: LACTULOSE 20G/30ML UDC PO SCH ×2 (10:55→20:24)
[2021-04-23] MEDS: DEXT 5%/0.2% NACL 1,000 ML IV SCH (13:40)
[2021-04-23] MEDS: CEFEPIME 1,000 MG in DEXTROSE 5% WATER 50 ML IV SCH ×2 (13:40→22:57)
[2021-04-23] MEDS: CLONIDINE 0.1MG TABLET PO PRN (18:55)
[2021-04-23] MEDS: ATORVASTATIN CALCIUM 20MG TABLET PO SCH (20:24)
[2021-04-24] VITALS (98 sets, daily range): BP systolic 120–159; BP diastolic 66–104
[2021-04-24] MEDS: IPRATROPIUM BROMIDE (0.02%) 0.5MG/2.5ML NEB HHN SCH ×5 (00:31→20:22)
[2021-04-24] MEDS: MIDAZOLAM HCL 100 MG in SODIUM CHLORIDE 0.9% 80 ML IV PRN ×2 (00:54→16:14)
[2021-04-24 05:42] LABS: HEMATOCRIT. 32.8 % (42.0-52.0); MEAN CORPUSCULAR HEMOGLOBIN 30.5 pg (28.0-32.0); MEAN CORPUSCULAR VOLUME 90.7 fL (80.0-94.0); MEAN PLATELET VOLUME 9.6 fl (7.4-10.4); PLATELET 282 x1000/uL (130-400); RED BLOOD CELL COUNT 3.62 mill/uL (4.7-6.1); RED CELL DISTRIBUTION WIDTH 16.2 % (11.6-14.6)
[2021-04-24] MEDS: INSULIN LISPRO 100 UNITS/ML SUBCUT SCH ×3 (06:12→17:12)
[2021-04-24] MEDS: FENTANYL CITRATE/PF 2,500 MCG in SODIUM CHLORIDE 0.9% 200 ML IV PRN ×2 (06:23→16:14)
[2021-04-24] MEDS: BLOOD SUGAR DIAGNOSTIC STRIP TEST SCH ×4 (07:20→23:58)
[2021-04-24] MEDS: LACTULOSE 20G/30ML UDC PO SCH ×2 (08:30→21:23)
[2021-04-24] MEDS: ZINC SULFATE 220 MG ( 50 ) CAPSULE PO SCH (08:30)
[2021-04-24] MEDS: CHOLECALCIFEROL (D3) 1000 UNIT TABLET PO SCH (08:30)
[2021-04-24] MEDS: ASCORBIC ACID 500 MG TABLET PO SCH ×2 (08:30→21:23)
[2021-04-24] MEDS: FAMOTIDINE 20MG TABLET PO SCH ×2 (08:30→21:23)
[2021-04-24] MEDS: GUAIFENESIN/DM 600MG/30MG ER TAB 12HR PO SCH ×2 (08:30→21:23)
[2021-04-24] MEDS: ASPIRIN 81MG TABLET PO SCH (08:30)
[2021-04-24] MEDS: DEXAMETHASONE 10 MG/ML VIAL IV SCH (08:30)
[2021-04-24] MEDS: CEFEPIME 1,000 MG in DEXTROSE 5% WATER 50 ML IV SCH ×2 (08:30→21:23)
[2021-04-24] MEDS: DEXT 5%/0.2% NACL 1,000 ML IV SCH (08:38)
[2021-04-24 09:20] LABS: BG FRACTION INSPIRED OXYGEN 50; BG HCO3 ACT 29.8 mmol/L (22.0-26.0); BG PCO2 48.6 mmHg (35.0-45.0); BG PH 7.405 (7.350-7.450); BG SAMPLE SITE LEFT RADIAL; BG TOTAL RESPIRATORY RATE 25 b/min; BG VENT MODE VENT- PRVC
[2021-04-24] MEDS: INSULIN GLARGINE UD 100 UNITS/ML SYR SUBCUT SCH (10:42)
[2021-04-24 10:47] LABS: PLATELET ESTIMATE NORMAL
[2021-04-24] MEDS: ATORVASTATIN CALCIUM 20MG TABLET PO SCH (21:23)
[2021-04-25] VITALS (91 sets, daily range): BP systolic 110–166; BP diastolic 70–111
[2021-04-25] MEDS: CLONIDINE 0.1MG TABLET PO PRN (00:02)
[2021-04-25] MEDS: INSULIN LISPRO 100 UNITS/ML SUBCUT SCH ×4 (00:03→18:08)
[2021-04-25] MEDS: IPRATROPIUM BROMIDE (0.02%) 0.5MG/2.5ML NEB HHN SCH ×6 (00:23→20:27)
[2021-04-25] MEDS: MIDAZOLAM HCL 100 MG in SODIUM CHLORIDE 0.9% 80 ML IV PRN ×3 (02:23→14:25)
[2021-04-25] MEDS: FENTANYL CITRATE/PF 2,500 MCG in SODIUM CHLORIDE 0.9% 200 ML IV PRN ×3 (02:23→18:26)
[2021-04-25] MEDS: DEXT 5%/0.2% NACL 1,000 ML IV SCH (03:59)
[2021-04-25] MEDS: BLOOD SUGAR DIAGNOSTIC STRIP TEST SCH ×3 (05:28→18:05)
[2021-04-25] MEDS: CHOLECALCIFEROL (D3) 1000 UNIT TABLET PO SCH (08:05)
[2021-04-25] MEDS: ASPIRIN 81MG TABLET PO SCH (08:05)
[2021-04-25] MEDS: FAMOTIDINE 20MG TABLET PO SCH ×2 (08:05→21:30)
[2021-04-25] MEDS: ASCORBIC ACID 500 MG TABLET PO SCH ×2 (08:06→21:30)
[2021-04-25] MEDS: ZINC SULFATE 220 MG ( 50 ) CAPSULE PO SCH (08:06)
[2021-04-25] MEDS: CEFEPIME 1,000 MG in DEXTROSE 5% WATER 50 ML IV SCH ×2 (08:06→21:30)
[2021-04-25] MEDS: LACTULOSE 20G/30ML UDC PO SCH (08:06)
[2021-04-25] MEDS: GUAIFENESIN/DM 600MG/30MG ER TAB 12HR PO SCH ×2 (08:06→21:30)
[2021-04-25] MEDS: DEXAMETHASONE 10 MG/ML VIAL IV SCH (08:06)
[2021-04-25 09:57] LABS: BG BASE EXCESS -0.1 mmol/L (-2.0-2.0); BG CARBOXYHEMOGLOBIN 0.9 % (0.5-1.5); BG DEOXYHEMOGLOBIN 8.7 % (0.0-5.0); BG FRACTION INSPIRED OXYGEN 45; BG METHEMOGLOBIN 0.3 % (0.0-1.5); BG OXYGEN SATURATION 91.2 % (92.0-98.5); BG OXYHEMOGLOBIN 90.1 % (94.0-97.0); BG PCO2 42.1 mmHg (35.0-45.0); BG PH 7.391 (7.350-7.450); BG PO2 64.2 mmHg (75.0-100.0); BG SAMPLE SITE RIGHT RADIAL; BG TOTAL HEMOGLOBIN 13.4 g/dL (12.0-18.0); BG VENT MODE VENT - AC
[2021-04-25 10:29] LABS: HEMATOCRIT. 39.3 % (42.0-52.0); HEMOGLOBIN. 12.6 g/dL (14.0-18.0); MEAN CORPUSCULAR VOLUME 81.1 fL (80.0-94.0); MEAN PLATELET VOLUME 9.4 fl (7.4-10.4); PLATELET 302 x1000/uL (130-400); RED BLOOD CELL COUNT 4.85 mill/uL (4.7-6.1); RED CELL DISTRIBUTION WIDTH 16.2 % (11.6-14.6)
[2021-04-25 10:33] LABS: CHLORIDE 116 mEq/L (98-107)
[2021-04-25] MEDS ORDERED: LACTULOSE 20G/30ML UDC PO PRN (11:00)
[2021-04-25] MEDS: INSULIN GLARGINE UD 100 UNITS/ML SYR SUBCUT SCH (11:25)
[2021-04-25] MEDS: ACETAMINOPHEN 325MG TABLET PO PRN (12:28)
[2021-04-25] MEDS ORDERED: INSULIN GLARGINE UD 100 UNITS/ML SYR SUBCUT SCH (13:30)
[2021-04-25 17:36] LABS: PLATELET ESTIMATE NORMAL
[2021-04-25] MEDS: ATORVASTATIN CALCIUM 20MG TABLET PO SCH (21:30)
[2021-04-26] VITALS (94 sets, daily range): BP systolic 111–163; BP diastolic 20–113
[2021-04-26] MEDS: BLOOD SUGAR DIAGNOSTIC STRIP TEST SCH ×5 (00:23→23:52)
[2021-04-26] MEDS: INSULIN LISPRO 100 UNITS/ML SUBCUT SCH ×4 (00:38→18:02)
[2021-04-26] MEDS: IPRATROPIUM BROMIDE (0.02%) 0.5MG/2.5ML NEB HHN SCH ×7 (00:42→23:57)
[2021-04-26] MEDS: ACETAMINOPHEN 325MG TABLET PO PRN ×3 (01:18→20:06)
[2021-04-26] MEDS: FENTANYL CITRATE/PF 2,500 MCG in SODIUM CHLORIDE 0.9% 200 ML IV PRN ×2 (02:08→10:20)
[2021-04-26 05:10] LABS: CHLORIDE 117 mEq/L (98-107)
[2021-04-26 05:13] LABS: HEMATOCRIT. 39.5 % (42.0-52.0); HEMOGLOBIN. 12.8 g/dL (14.0-18.0); MEAN CORPUSCULAR HEMOGLOBIN 26.7 pg (28.0-32.0); MEAN CORPUSCULAR VOLUME 82.3 fL (80.0-94.0); MEAN PLATELET VOLUME 9.5 fl (7.4-10.4); PLATELET 284 x1000/uL (130-400); RED CELL DISTRIBUTION WIDTH 16.2 % (11.6-14.6)
[2021-04-26] MEDS: MIDAZOLAM HCL 100 MG in SODIUM CHLORIDE 0.9% 80 ML IV PRN (07:53)
[2021-04-26] MEDS: FAMOTIDINE 20MG TABLET PO SCH ×2 (08:18→20:57)
[2021-04-26] MEDS: ASPIRIN 81MG TABLET PO SCH (08:18)
[2021-04-26] MEDS: CEFEPIME 1,000 MG in DEXTROSE 5% WATER 50 ML IV SCH ×2 (08:18→20:57)
[2021-04-26] MEDS: ASCORBIC ACID 500 MG TABLET PO SCH ×2 (08:19→20:57)
[2021-04-26] MEDS: CHOLECALCIFEROL (D3) 1000 UNIT TABLET PO SCH (08:19)
[2021-04-26] MEDS: GUAIFENESIN/DM 600MG/30MG ER TAB 12HR PO SCH (08:19)
[2021-04-26] MEDS: DEXAMETHASONE 10 MG/ML VIAL IV SCH (08:19)
[2021-04-26] MEDS: ZINC SULFATE 220 MG ( 50 ) CAPSULE PO SCH (08:19)
[2021-04-26 08:38] LABS: BG BASE EXCESS 1.4 mmol/L (-2.0-2.0); BG DEOXYHEMOGLOBIN 7.5 % (0.0-5.0); BG HCO3 ACT 26.9 mmol/L (22.0-26.0); BG METHEMOGLOBIN 0.1 % (0.0-1.5); BG OXYGEN SATURATION 92.4 % (92.0-98.5); BG OXYHEMOGLOBIN 91.4 % (94.0-97.0); BG PH 7.385 (7.350-7.450); BG PO2 65.4 mmHg (75.0-100.0); BG SAMPLE SITE RIGHT RADIAL; BG TOTAL HEMOGLOBIN 14.1 g/dL (12.0-18.0); BG VENT MODE VENT- PRVC
[2021-04-26] MEDS: INSULIN GLARGINE UD 100 UNITS/ML SYR SUBCUT SCH (10:16)
[2021-04-26 16:55] LABS: PLATELET ESTIMATE NORMAL
[2021-04-26] MEDS: ATORVASTATIN CALCIUM 20MG TABLET PO SCH (20:57)
[2021-04-26] MEDS: METOPROLOL TARTRATE 25MG TABLET PO SCH (20:58)
[2021-04-27] VITALS (90 sets, daily range): BP systolic 103–162; BP diastolic 54–109
[2021-04-27] MEDS: IPRATROPIUM BROMIDE (0.02%) 0.5MG/2.5ML NEB HHN SCH ×7 (00:10→20:02)
[2021-04-27] MEDS: INSULIN LISPRO 100 UNITS/ML SUBCUT SCH ×4 (00:23→18:48)
[2021-04-27] MEDS: ACETAMINOPHEN 325MG TABLET PO PRN ×2 (00:25→14:49)
[2021-04-27] MEDS: FENTANYL CITRATE/PF 2,500 MCG in SODIUM CHLORIDE 0.9% 200 ML IV PRN ×2 (00:38→15:29)
[2021-04-27] MEDS: MIDAZOLAM HCL 100 MG in SODIUM CHLORIDE 0.9% 80 ML IV PRN ×2 (02:00→17:00)
[2021-04-27 05:07] LABS: CHLORIDE 119 mEq/L (98-107)
[2021-04-27 05:10] LABS: HEMATOCRIT. 40.2 % (42.0-52.0); HEMOGLOBIN. 12.7 g/dL (14.0-18.0); MEAN CORPUSCULAR VOLUME 88.5 fL (80.0-94.0); MEAN PLATELET VOLUME 9.8 fl (7.4-10.4); PLATELET 196 x1000/uL (130-400); RED BLOOD CELL COUNT 4.54 mill/uL (4.7-6.1)
[2021-04-27] MEDS: BLOOD SUGAR DIAGNOSTIC STRIP TEST SCH ×3 (06:12→18:47)
[2021-04-27 07:31] LABS: PLATELET ESTIMATE NORMAL
[2021-04-27 08:03] LABS: BG BASE EXCESS 1.9 mmol/L (-2.0-2.0); BG CARBOXYHEMOGLOBIN 0.7 % (0.5-1.5); BG DEOXYHEMOGLOBIN 3.1 % (0.0-5.0); BG FRACTION INSPIRED OXYGEN 45; BG HCO3 ACT 27.3 mmol/L (22.0-26.0); BG METHEMOGLOBIN 0.1 % (0.0-1.5); BG OXYGEN SATURATION 96.9 % (92.0-98.5); BG OXYHEMOGLOBIN 96.1 % (94.0-97.0); BG PCO2 45.7 mmHg (35.0-45.0); BG PH 7.394 (7.350-7.450); BG PO2 90.1 mmHg (75.0-100.0); BG SAMPLE SITE RIGHT RADIAL; BG TOTAL HEMOGLOBIN 13.2 g/dL (12.0-18.0); BG TOTAL RESPIRATORY RATE 26 b/min; BG VENT MODE VENT- PRVC
[2021-04-27] MEDS: CEFEPIME 1,000 MG in DEXTROSE 5% WATER 50 ML IV SCH (09:43)
[2021-04-27] MEDS: ASCORBIC ACID 500 MG TABLET PO SCH ×2 (09:44→21:54)
[2021-04-27] MEDS: ASPIRIN 81MG TABLET PO SCH (09:44)
[2021-04-27] MEDS: CHOLECALCIFEROL (D3) 1000 UNIT TABLET PO SCH (09:44)
[2021-04-27] MEDS: METOPROLOL TARTRATE 25MG TABLET PO SCH ×2 (09:44→21:54)
[2021-04-27] MEDS: FAMOTIDINE 20MG TABLET PO SCH ×2 (09:44→21:55)
[2021-04-27] MEDS: ZINC SULFATE 220 MG ( 50 ) CAPSULE PO SCH (09:44)
[2021-04-27] MEDS: INSULIN GLARGINE UD 100 UNITS/ML SYR SUBCUT SCH (09:45)
[2021-04-27] MEDS: CEFEPIME 2,000 MG in DEXT 5% WATER 100 ML IV SCH (21:54)
[2021-04-27] MEDS: ATORVASTATIN CALCIUM 20MG TABLET PO SCH (21:54)
[2021-04-28] VITALS (97 sets, daily range): BP systolic 97–144; BP diastolic 53–103
[2021-04-28] MEDS: IPRATROPIUM BROMIDE (0.02%) 0.5MG/2.5ML NEB HHN SCH ×3 (00:48→08:33)
[2021-04-28] MEDS: BLOOD SUGAR DIAGNOSTIC STRIP TEST SCH ×4 (01:00→17:59)
[2021-04-28] MEDS: INSULIN LISPRO 100 UNITS/ML SUBCUT SCH ×4 (01:55→18:07)
[2021-04-28 04:57] LABS: BASOPHILS % 0.5 % (0.0-2.0); EOSINOPHILS % 3.6 % (0.0-5.0); HEMOGLOBIN. 11.8 g/dL (14.0-18.0); LYMPHOCYTES % 8.1 % (20.0-50.0); MEAN CORPUSCULAR HEMOGLOBIN 26.7 pg (28.0-32.0); MEAN CORPUSCULAR VOLUME 81.3 fL (80.0-94.0); MEAN PLATELET VOLUME 10.1 fl (7.4-10.4); MONOCYTES % 14.5 % (2.0-8.0); NEUTROPHILS % 73.3 % (40.0-76.0); PLATELET 206 x1000/uL (130-400); RED BLOOD CELL COUNT 4.42 mill/uL (4.7-6.1); RED CELL DISTRIBUTION WIDTH 16.1 % (11.6-14.6)
[2021-04-28] MEDS: ACETAMINOPHEN 325MG TABLET PO PRN (05:02)
[2021-04-28 05:05] LABS: CHLORIDE 120 mEq/L (98-107)
[2021-04-28] MEDS: FENTANYL CITRATE/PF 2,500 MCG in SODIUM CHLORIDE 0.9% 200 ML IV PRN ×2 (05:08→18:40)
[2021-04-28] MEDS: MIDAZOLAM HCL 100 MG in SODIUM CHLORIDE 0.9% 80 ML IV PRN ×2 (05:40→15:31)
[2021-04-28 10:12] LABS: BG BASE EXCESS 0.7 mmol/L (-2.0-2.0); BG CARBOXYHEMOGLOBIN 1.1 % (0.5-1.5); BG DEOXYHEMOGLOBIN 0.6 % (0.0-5.0); BG FRACTION INSPIRED OXYGEN 100; BG HCO3 ACT 26.6 mmol/L (22.0-26.0); BG METHEMOGLOBIN 0.2 % (0.0-1.5); BG OXYGEN SATURATION 99.4 % (92.0-98.5); BG OXYHEMOGLOBIN 98.1 % (94.0-97.0); BG PCO2 47.8 mmHg (35.0-45.0); BG PH 7.363 (7.350-7.450); BG PO2 210.5 mmHg (75.0-100.0); BG SAMPLE SITE LEFT RADIAL; BG TOTAL HEMOGLOBIN 12.6 g/dL (12.0-18.0); BG VENT MODE VENT - PRVC
[2021-04-28] MEDS: CEFEPIME 2,000 MG in DEXT 5% WATER 100 ML IV SCH ×2 (10:12→22:09)
[2021-04-28] MEDS: CHOLECALCIFEROL (D3) 1000 UNIT TABLET PO SCH (10:12)
[2021-04-28] MEDS: FAMOTIDINE 20MG TABLET PO SCH ×2 (10:12→22:04)
[2021-04-28] MEDS: ZINC SULFATE 220 MG ( 50 ) CAPSULE PO SCH (10:13)
[2021-04-28] MEDS: METOPROLOL TARTRATE 25MG TABLET PO SCH (10:13)
[2021-04-28] MEDS: ASPIRIN 81MG TABLET PO SCH (10:13)
[2021-04-28] MEDS: ASCORBIC ACID 500 MG TABLET PO SCH ×2 (10:13→22:05)
[2021-04-28] MEDS: INSULIN GLARGINE UD 100 UNITS/ML SYR SUBCUT SCH (10:15)
[2021-04-28] MEDS: IPRATROPIUM/ALBUTEROL 0.5-3(2.5)MG/3ML NEB HHN SCH ×3 (12:18→20:49)
[2021-04-28] MEDS: SODIUM CHLORIDE 0.45% 1,000 ML IV SCH (13:00)
[2021-04-28] MEDS ORDERED: INSULIN GLARGINE UD 100 UNITS/ML SYR SUBCUT NR (13:00)
[2021-04-28] MEDS: ACETYLCYSTEINE 100MG/ML 10% VIAL 4ML INH SCH (16:28)
[2021-04-28] MEDS: ATORVASTATIN CALCIUM 20MG TABLET PO SCH (22:05)
[2021-04-29] VITALS (91 sets, daily range): BP systolic 66–152; BP diastolic 36–122
[2021-04-29] MEDS: IPRATROPIUM/ALBUTEROL 0.5-3(2.5)MG/3ML NEB HHN SCH ×6 (00:24→21:07)
[2021-04-29] MEDS: ACETYLCYSTEINE 100MG/ML 10% VIAL 4ML INH SCH ×3 (00:24→16:19)
[2021-04-29] MEDS: BLOOD SUGAR DIAGNOSTIC STRIP TEST SCH ×4 (00:33→18:31)
[2021-04-29] MEDS: INSULIN LISPRO 100 UNITS/ML SUBCUT SCH ×4 (00:35→18:00)
[2021-04-29] MEDS: METOPROLOL TARTRATE 25MG TABLET PO SCH ×3 (00:37→21:00)
[2021-04-29] MEDS: ACETAMINOPHEN 325MG TABLET PO PRN ×3 (04:14→15:30)
[2021-04-29] MEDS: FENTANYL CITRATE/PF 2,500 MCG in SODIUM CHLORIDE 0.9% 200 ML IV PRN ×2 (07:36→19:19)
[2021-04-29] MEDS: MIDAZOLAM HCL 100 MG in SODIUM CHLORIDE 0.9% 80 ML IV PRN ×2 (07:37→15:58)
[2021-04-29 08:19] LABS: BG BASE EXCESS 0.1 mmol/L (-2.0-2.0); BG CARBOXYHEMOGLOBIN 0.5 % (0.5-1.5); BG DEOXYHEMOGLOBIN 2.4 % (0.0-5.0); BG HCO3 ACT 25.5 mmol/L (22.0-26.0); BG METHEMOGLOBIN 0.2 % (0.0-1.5); BG OXYGEN SATURATION 97.6 % (92.0-98.5); BG OXYHEMOGLOBIN 96.9 % (94.0-97.0); BG PCO2 44.9 mmHg (35.0-45.0); BG PH 7.373 (7.350-7.450); BG SAMPLE SITE RIGHT RADIAL; BG TOTAL HEMOGLOBIN 12.2 g/dL (12.0-18.0); BG VENT MODE VENT- PRVC
[2021-04-29] MEDS: CHOLECALCIFEROL (D3) 1000 UNIT TABLET PO SCH (09:00)
[2021-04-29] MEDS: CEFEPIME 2,000 MG in DEXT 5% WATER 100 ML IV SCH (11:04)
[2021-04-29] MEDS: ASCORBIC ACID 500 MG TABLET PO SCH ×2 (11:04→22:22)
[2021-04-29] MEDS: INSULIN GLARGINE UD 100 UNITS/ML SYR SUBCUT SCH (11:04)
[2021-04-29] MEDS: ASPIRIN 81MG TABLET PO SCH (11:05)
[2021-04-29] MEDS: ZINC SULFATE 220 MG ( 50 ) CAPSULE PO SCH (11:05)
[2021-04-29] MEDS: FAMOTIDINE 20MG TABLET PO SCH ×2 (11:05→22:22)
[2021-04-29] MEDS: SODIUM CHLORIDE 0.45% 1,000 ML IV SCH (11:06)
[2021-04-29] MEDS ORDERED: VANCOMYCIN 2,000 MG in DEXT 5% WATER 500 ML IV SCH (14:00)
[2021-04-29] MEDS: MEROPENEM 1,000 MG in SODIUM CHLORIDE 0.9% 100 ML IV SCH ×2 (15:30→22:28)
[2021-04-29 16:17] LABS: HEMATOCRIT. 33.2 % (42.0-52.0); HEMOGLOBIN. 10.5 g/dL (14.0-18.0); MEAN CORPUSCULAR HEMOGLOBIN 25.7 pg (28.0-32.0); MEAN CORPUSCULAR VOLUME 81.2 fL (80.0-94.0); MEAN PLATELET VOLUME 11.2 fl (7.4-10.4); PLATELET 174 x1000/uL (130-400); RED CELL DISTRIBUTION WIDTH 16.3 % (11.6-14.6)
[2021-04-29 16:23] LABS: CHLORIDE 120 mEq/L (98-107)
[2021-04-29 21:56] LABS: PLATELET ESTIMATE NORMAL
[2021-04-29] MEDS: ATORVASTATIN CALCIUM 20MG TABLET PO SCH (22:22)
[2021-04-30] VITALS (91 sets, daily range): BP systolic 80–126; BP diastolic 48–111
[2021-04-30] MEDS: BLOOD SUGAR DIAGNOSTIC STRIP TEST SCH ×4 (00:11→18:06)
[2021-04-30] MEDS: MIDAZOLAM HCL 100 MG in SODIUM CHLORIDE 0.9% 80 ML IV PRN ×4 (00:12→20:47)
[2021-04-30] MEDS: INSULIN LISPRO 100 UNITS/ML SUBCUT SCH ×4 (00:14→18:22)
[2021-04-30] MEDS: ACETYLCYSTEINE 100MG/ML 10% VIAL 4ML INH SCH ×3 (01:40→16:53)
[2021-04-30] MEDS: IPRATROPIUM/ALBUTEROL 0.5-3(2.5)MG/3ML NEB HHN SCH ×6 (01:40→20:36)
[2021-04-30] MEDS: FENTANYL CITRATE/PF 2,500 MCG in SODIUM CHLORIDE 0.9% 200 ML IV PRN ×2 (04:00→17:07)
[2021-04-30] MEDS: MEROPENEM 1,000 MG in SODIUM CHLORIDE 0.9% 100 ML IV SCH ×2 (05:00→18:06)
[2021-04-30 05:12] LABS: BASOPHILS % 0.3 % (0.0-2.0); EOSINOPHILS % 3.2 % (0.0-5.0); HEMATOCRIT. 29.2 % (42.0-52.0); HEMOGLOBIN. 9.4 g/dL (14.0-18.0); LYMPHOCYTES % 7.8 % (20.0-50.0); MEAN CORPUSCULAR VOLUME 81.2 fL (80.0-94.0); MEAN PLATELET VOLUME 10.8 fl (7.4-10.4); MONOCYTES % 10.2 % (2.0-8.0); NEUTROPHILS % 78.5 % (40.0-76.0); PLATELET 154 x1000/uL (130-400); RED CELL DISTRIBUTION WIDTH 16.5 % (11.6-14.6)
[2021-04-30] MEDS ORDERED: VANCOMYCIN 1250MG in DEXTROSE 5% WATER 250ML IV SCH (06:00)
[2021-04-30] MEDS: FAMOTIDINE 20MG TABLET PO SCH ×2 (08:51→20:46)
[2021-04-30] MEDS: ZINC SULFATE 220 MG ( 50 ) CAPSULE PO SCH (08:51)
[2021-04-30] MEDS: ASPIRIN 81MG TABLET PO SCH (08:51)
[2021-04-30] MEDS: CHOLECALCIFEROL (D3) 1000 UNIT TABLET PO SCH (08:51)
[2021-04-30] MEDS: ASCORBIC ACID 500 MG TABLET PO SCH ×2 (08:51→20:46)
[2021-04-30] MEDS: METOPROLOL TARTRATE 25MG TABLET PO SCH ×2 (08:51→20:35)
[2021-04-30 09:22] LABS: PHOSPHORUS 3.1 mg/dL (2.5-4.9)
[2021-04-30] MEDS: PHENYLEPHRINE 100 MG in DEXT 5% WATER 240 ML IV PRN (09:34)
[2021-04-30 10:07] LABS: BG BASE EXCESS -2.6 mmol/L (-2.0-2.0); BG CARBOXYHEMOGLOBIN 0.1 % (0.5-1.5); BG DEOXYHEMOGLOBIN 1.8 % (0.0-5.0); BG FRACTION INSPIRED OXYGEN 100; BG HCO3 ACT 24.1 mmol/L (22.0-26.0); BG METHEMOGLOBIN 0.3 % (0.0-1.5); BG OXYGEN SATURATION 98.2 % (92.0-98.5); BG OXYHEMOGLOBIN 97.8 % (94.0-97.0); BG PCO2 51.3 mmHg (35.0-45.0); BG PH 7.289 (7.350-7.450); BG PO2 125.5 mmHg (75.0-100.0); BG SAMPLE SITE RIGHT RADIAL; BG TOTAL HEMOGLOBIN 8.8 g/dL (12.0-18.0); BG VENT MODE VENT - PRVC
[2021-04-30] MEDS: INSULIN GLARGINE UD 100 UNITS/ML SYR SUBCUT SCH (12:21)
[2021-04-30] MEDS ORDERED: POTASSIUM CHLORIDE INJ 40 MEQ in DEXT 5% WATER 250 ML IV NR (14:00)
[2021-04-30] MEDS: SODIUM CHLORIDE 0.45% 1,000 ML IV SCH (14:41)
[2021-05-01] VITALS (97 sets, daily range): BP systolic 82–138; BP diastolic 48–82
[2021-05-01] MEDS: ACETYLCYSTEINE 100MG/ML 10% VIAL 4ML INH SCH ×3 (00:32→15:59)
[2021-05-01] MEDS: IPRATROPIUM/ALBUTEROL 0.5-3(2.5)MG/3ML NEB HHN SCH ×6 (00:32→20:51)
[2021-05-01] MEDS: MIDAZOLAM HCL 100 MG in SODIUM CHLORIDE 0.9% 80 ML IV PRN ×3 (03:41→19:18)
[2021-05-01] MEDS: SODIUM CHLORIDE 0.45% 1,000 ML IV SCH (04:24)
[2021-05-01] MEDS: BLOOD SUGAR DIAGNOSTIC STRIP TEST SCH ×3 (06:00→11:06)
[2021-05-01] MEDS: MEROPENEM 1,000 MG in SODIUM CHLORIDE 0.9% 100 ML IV SCH ×2 (06:01→17:27)
[2021-05-01] MEDS: INSULIN LISPRO 100 UNITS/ML SUBCUT SCH ×3 (06:11→11:26)
[2021-05-01] MEDS: PHENYLEPHRINE 100 MG in DEXT 5% WATER 240 ML IV PRN (06:32)
[2021-05-01] MEDS: FENTANYL CITRATE/PF 2,500 MCG in SODIUM CHLORIDE 0.9% 200 ML IV PRN ×2 (06:34→16:33)
[2021-05-01] MEDS: METOPROLOL TARTRATE 25MG TABLET PO SCH ×2 (09:00→21:53)
[2021-05-01] MEDS: CHOLECALCIFEROL (D3) 1000 UNIT TABLET PO SCH (09:45)
[2021-05-01] MEDS: ZINC SULFATE 220 MG ( 50 ) CAPSULE PO SCH (09:46)
[2021-05-01] MEDS: FAMOTIDINE 20MG TABLET PO SCH ×2 (09:46→20:56)
[2021-05-01] MEDS: ASPIRIN 81MG TABLET PO SCH (09:46)
[2021-05-01] MEDS: ASCORBIC ACID 500 MG TABLET PO SCH ×2 (09:46→20:57)
[2021-05-01] MEDS: INSULIN GLARGINE UD 100 UNITS/ML SYR SUBCUT SCH (11:06)
[2021-05-01] MEDS: ACETAMINOPHEN 325MG TABLET PO PRN (22:04)
[2021-05-02] VITALS (94 sets, daily range): BP systolic 91–147; BP diastolic 50–82
[2021-05-02] MEDS: BLOOD SUGAR DIAGNOSTIC STRIP TEST SCH ×5 (00:12→23:20)
[2021-05-02] MEDS: IPRATROPIUM/ALBUTEROL 0.5-3(2.5)MG/3ML NEB HHN SCH ×6 (00:43→20:53)
[2021-05-02] MEDS: ACETYLCYSTEINE 100MG/ML 10% VIAL 4ML INH SCH ×4 (00:43→15:45)
[2021-05-02] MEDS: FENTANYL CITRATE/PF 2,500 MCG in SODIUM CHLORIDE 0.9% 200 ML IV PRN ×3 (01:16→18:13)
[2021-05-02] MEDS: PHENYLEPHRINE 100 MG in DEXT 5% WATER 240 ML IV PRN ×2 (01:16→02:21)
[2021-05-02] MEDS: MEROPENEM 1,000 MG in SODIUM CHLORIDE 0.9% 100 ML IV SCH ×2 (05:51→17:47)
[2021-05-02] MEDS: INSULIN LISPRO 100 UNITS/ML SUBCUT SCH ×4 (06:00→23:19)
[2021-05-02] MEDS ORDERED: VANCOMYCIN 1 G PREMIX 200 ML IV NR (06:00)
[2021-05-02] MEDS: LACTULOSE 20G/30ML UDC PO SCH ×3 (06:49→21:37)
[2021-05-02] MEDS: MIDAZOLAM HCL 100 MG in SODIUM CHLORIDE 0.9% 80 ML IV PRN ×2 (06:58→18:13)
[2021-05-02 09:06] LABS: BG BASE EXCESS -6.3 mmol/L (-2.0-2.0); BG CARBOXYHEMOGLOBIN 0.7 % (0.5-1.5); BG DEOXYHEMOGLOBIN 10.9 % (0.0-5.0); BG FRACTION INSPIRED OXYGEN 70; BG HCO3 ACT 19.3 mmol/L (22.0-26.0); BG METHEMOGLOBIN 0.2 % (0.0-1.5); BG OXYHEMOGLOBIN 88.2 % (94.0-97.0); BG PCO2 38.4 mmHg (35.0-45.0); BG PH 7.318 (7.350-7.450); BG PO2 57.2 mmHg (75.0-100.0); BG SAMPLE SITE RIGHT RADIAL; BG TOTAL HEMOGLOBIN 9.1 g/dL (12.0-18.0); BG VENT MODE VENT - PRVC
[2021-05-02 09:18] LABS: BASOPHILS % 1.3 % (0.0-2.0); EOSINOPHILS % 5.1 % (0.0-5.0); HEMATOCRIT. 29.3 % (42.0-52.0); MEAN CORPUSCULAR HEMOGLOBIN 25.4 pg (28.0-32.0); MEAN CORPUSCULAR VOLUME 82.4 fL (80.0-94.0); MEAN PLATELET VOLUME 11.3 fl (7.4-10.4); MONOCYTES % 10.1 % (2.0-8.0); NEUTROPHILS % 75.5 % (40.0-76.0); PLATELET 182 x1000/uL (130-400); RED BLOOD CELL COUNT 3.55 mill/uL (4.7-6.1); RED CELL DISTRIBUTION WIDTH 16.8 % (11.6-14.6)
[2021-05-02] MEDS: ASCORBIC ACID 500 MG TABLET PO SCH ×2 (09:46→21:40)
[2021-05-02] MEDS: FAMOTIDINE 20MG TABLET PO SCH ×2 (09:46→21:37)
[2021-05-02] MEDS: METOPROLOL TARTRATE 25MG TABLET PO SCH ×3 (09:47→21:38)
[2021-05-02] MEDS: ASPIRIN 81MG TABLET PO SCH (09:47)
[2021-05-02] MEDS: ZINC SULFATE 220 MG ( 50 ) CAPSULE PO SCH (09:47)
[2021-05-02] MEDS: CHOLECALCIFEROL (D3) 1000 UNIT TABLET PO SCH (09:48)
[2021-05-02] MEDS: INSULIN GLARGINE UD 100 UNITS/ML SYR SUBCUT SCH (09:48)
[2021-05-02 11:04] LABS: INR 1.1; PROTHROMBIN TIME 11.3 sec (9.6-11.0)
[2021-05-02] MEDS: SODIUM CHLORIDE 0.45% 1,000 ML IV SCH (12:57)
[2021-05-02] MEDS ORDERED: POTASSIUM CHLORIDE 20MEQ/PACKET PO NR (14:45)
[2021-05-02] MEDS ORDERED: POTASSIUM CHLORIDE INJ 40 MEQ in DEXT 5% WATER 500 ML IV NR (16:30)
[2021-05-03] VITALS (105 sets, daily range): BP systolic 54–132; BP diastolic 20–76
[2021-05-03] MEDS: IPRATROPIUM/ALBUTEROL 0.5-3(2.5)MG/3ML NEB HHN SCH ×6 (00:58→21:29)
[2021-05-03] MEDS: ACETYLCYSTEINE 100MG/ML 10% VIAL 4ML INH SCH ×2 (00:59→08:54)
[2021-05-03] MEDS: FENTANYL CITRATE/PF 2,500 MCG in SODIUM CHLORIDE 0.9% 200 ML IV PRN ×4 (01:15→23:37)
[2021-05-03] MEDS: MIDAZOLAM HCL 100 MG in SODIUM CHLORIDE 0.9% 80 ML IV PRN ×4 (01:22→23:37)
[2021-05-03] MEDS: LACTULOSE 20G/30ML UDC PO SCH ×3 (05:22→22:25)
[2021-05-03] MEDS: BLOOD SUGAR DIAGNOSTIC STRIP TEST SCH ×3 (05:22→17:55)
[2021-05-03] MEDS: MEROPENEM 1,000 MG in SODIUM CHLORIDE 0.9% 100 ML IV SCH ×2 (05:22→17:54)
[2021-05-03] MEDS: INSULIN LISPRO 100 UNITS/ML SUBCUT SCH ×3 (05:22→17:55)
[2021-05-03 05:41] LABS: HEMATOCRIT. 23.6 % (42.0-52.0); HEMOGLOBIN. 7.8 g/dL (14.0-18.0); MEAN CORPUSCULAR HEMOGLOBIN 25.9 pg (28.0-32.0); MEAN CORPUSCULAR VOLUME 78.6 fL (80.0-94.0); MEAN PLATELET VOLUME 10.4 fl (7.4-10.4); PLATELET 164 x1000/uL (130-400); RED CELL DISTRIBUTION WIDTH 15.8 % (11.6-14.6)
[2021-05-03] MEDS: METOPROLOL TARTRATE 25MG TABLET PO SCH ×2 (09:00→21:00)
[2021-05-03] MEDS: ZINC SULFATE 220 MG ( 50 ) CAPSULE PO SCH (09:00)
[2021-05-03] MEDS: CHOLECALCIFEROL (D3) 1000 UNIT TABLET PO SCH (09:00)
[2021-05-03] MEDS: FAMOTIDINE 20MG TABLET PO SCH (09:00)
[2021-05-03] MEDS: ASCORBIC ACID 500 MG TABLET PO SCH ×2 (09:00→22:25)
[2021-05-03] MEDS: ASPIRIN 81MG TABLET PO SCH (09:00)
[2021-05-03 09:11] LABS: BG BASE EXCESS -9.3 mmol/L (-2.0-2.0); BG CARBOXYHEMOGLOBIN 0.3 % (0.5-1.5); BG DEOXYHEMOGLOBIN 2.9 % (0.0-5.0); BG FRACTION INSPIRED OXYGEN 70; BG HCO3 ACT 16.9 mmol/L (22.0-26.0); BG METHEMOGLOBIN 0.5 % (0.0-1.5); BG OXYGEN SATURATION 97.1 % (92.0-98.5); BG OXYHEMOGLOBIN 96.3 % (94.0-97.0); BG PCO2 38.2 mmHg (35.0-45.0); BG PH 7.264 (7.350-7.450); BG PO2 109.7 mmHg (75.0-100.0); BG SAMPLE SITE RIGHT RADIAL; BG TOTAL HEMOGLOBIN 8.3 g/dL (12.0-18.0); BG TOTAL RESPIRATORY RATE 30 b/min; BG VENT MODE VENT- PRVC
[2021-05-03] MEDS ORDERED: SODIUM BICARBONATE 8.4% 1 MEQ/ML 50ML SYR IV NR (10:00)
[2021-05-03] MEDS: INSULIN GLARGINE UD 100 UNITS/ML SYR SUBCUT SCH (10:00)
[2021-05-03] MEDS: SODIUM CHLORIDE 0.45% 1,000 ML IV SCH (11:56)
[2021-05-03 13:01] LABS: PLATELET ESTIMATE NORMAL
[2021-05-03] MEDS: PHENYLEPHRINE 100 MG in DEXT 5% WATER 240 ML IV PRN (16:34)
[2021-05-04] VITALS (100 sets, daily range): BP systolic 62–137; BP diastolic 27–122
[2021-05-04] MEDS: IPRATROPIUM/ALBUTEROL 0.5-3(2.5)MG/3ML NEB HHN SCH ×7 (00:55→23:55)
[2021-05-04 05:44] LABS: BASOPHILS % 0.5 % (0.0-2.0); EOSINOPHILS % 8.2 % (0.0-5.0); HEMATOCRIT. 24.3 % (42.0-52.0); HEMOGLOBIN. 8.2 g/dL (14.0-18.0); LYMPHOCYTES % 9.1 % (20.0-50.0); MEAN CORPUSCULAR HEMOGLOBIN 26.6 pg (28.0-32.0); MONOCYTES % 6.9 % (2.0-8.0); NEUTROPHILS % 75.3 % (40.0-76.0); PLATELET 189 x1000/uL (130-400); RED BLOOD CELL COUNT 3.08 mill/uL (4.7-6.1); RED CELL DISTRIBUTION WIDTH 16.8 % (11.6-14.6)
[2021-05-04] MEDS: MEROPENEM 1,000 MG in SODIUM CHLORIDE 0.9% 100 ML IV SCH ×2 (05:53→18:22)
[2021-05-04] MEDS: BLOOD SUGAR DIAGNOSTIC STRIP TEST SCH ×4 (05:53→18:22)
[2021-05-04] MEDS: LACTULOSE 20G/30ML UDC PO SCH ×3 (05:53→22:38)
[2021-05-04] MEDS: INSULIN LISPRO 100 UNITS/ML SUBCUT SCH ×4 (05:53→18:00)
[2021-05-04 06:45] LABS: PHOSPHORUS 8.4 mg/dL (2.5-4.9)
[2021-05-04] MEDS: MIDAZOLAM HCL 100 MG in SODIUM CHLORIDE 0.9% 80 ML IV PRN ×3 (07:23→18:52)
[2021-05-04] MEDS: FENTANYL CITRATE/PF 2,500 MCG in SODIUM CHLORIDE 0.9% 200 ML IV PRN ×3 (07:24→21:20)
[2021-05-04] MEDS: ASPIRIN 81MG TABLET PO SCH (08:27)
[2021-05-04] MEDS: CHOLECALCIFEROL (D3) 1000 UNIT TABLET PO SCH (08:27)
[2021-05-04] MEDS: ZINC SULFATE 220 MG ( 50 ) CAPSULE PO SCH (08:27)
[2021-05-04] MEDS: ASCORBIC ACID 500 MG TABLET PO SCH ×2 (08:27→22:38)
[2021-05-04] MEDS: FAMOTIDINE 20MG TABLET PO SCH (08:27)
[2021-05-04] MEDS: METOPROLOL TARTRATE 25MG TABLET PO SCH ×2 (08:27→22:38)
[2021-05-04 09:22] LABS: BG BASE EXCESS -9.6 mmol/L (-2.0-2.0); BG CARBOXYHEMOGLOBIN 0.8 % (0.5-1.5); BG DEOXYHEMOGLOBIN 13.5 % (0.0-5.0); BG FRACTION INSPIRED OXYGEN 60; BG HCO3 ACT 16.5 mmol/L (22.0-26.0); BG METHEMOGLOBIN 0.3 % (0.0-1.5); BG OXYGEN SATURATION 86.3 % (92.0-98.5); BG OXYHEMOGLOBIN 85.4 % (94.0-97.0); BG PH 7.268 (7.350-7.450); BG PO2 57.2 mmHg (75.0-100.0); BG SAMPLE SITE RIGHT RADIAL; BG TOTAL HEMOGLOBIN 8.5 g/dL (12.0-18.0); BG TOTAL RESPIRATORY RATE 38 b/min; BG VENT MODE VENT- PRVC
[2021-05-04] MEDS: INSULIN GLARGINE UD 100 UNITS/ML SYR SUBCUT SCH (09:47)
[2021-05-04] MEDS ORDERED: KCL 20MEQ/100ML PREMIX 100 ML IV NR (10:00)
[2021-05-04] MEDS ORDERED: SODIUM BICARBONATE 8.4% 1 MEQ/ML 50ML SYR IV NR (11:00)
[2021-05-04] MEDS: PHENYLEPHRINE 100 MG in DEXT 5% WATER 240 ML IV PRN ×2 (13:29→23:39)
[2021-05-05] VITALS (70 sets, daily range): BP systolic 90–141; BP diastolic 23–92
[2021-05-05] MEDS: MIDAZOLAM HCL 100 MG in SODIUM CHLORIDE 0.9% 80 ML IV PRN ×4 (00:24→21:49)
[2021-05-05] MEDS: IPRATROPIUM/ALBUTEROL 0.5-3(2.5)MG/3ML NEB HHN SCH ×4 (03:22→16:43)
[2021-05-05] MEDS: FENTANYL CITRATE/PF 2,500 MCG in SODIUM CHLORIDE 0.9% 200 ML IV PRN ×3 (04:52→20:15)
[2021-05-05 05:29] LABS: EOSINOPHILS % 10.1 % (0.0-5.0); HEMOGLOBIN. 9.2 g/dL (14.0-18.0); LYMPHOCYTES % 8.4 % (20.0-50.0); MEAN CORPUSCULAR HEMOGLOBIN 26.3 pg (28.0-32.0); MEAN CORPUSCULAR VOLUME 80.3 fL (80.0-94.0); MEAN PLATELET VOLUME 9.2 fl (7.4-10.4); MONOCYTES % 9.2 % (2.0-8.0); NEUTROPHILS % 71.3 % (40.0-76.0); PLATELET 287 x1000/uL (130-400); RED BLOOD CELL COUNT 3.48 mill/uL (4.7-6.1); RED CELL DISTRIBUTION WIDTH 17.1 % (11.6-14.6)
[2021-05-05] MEDS: INSULIN LISPRO 100 UNITS/ML SUBCUT SCH ×4 (06:00→17:30)
[2021-05-05] MEDS: BLOOD SUGAR DIAGNOSTIC STRIP TEST SCH ×4 (06:02→17:30)
[2021-05-05] MEDS: LACTULOSE 20G/30ML UDC PO SCH ×3 (06:30→21:12)
[2021-05-05 06:46] LABS: PHOSPHORUS 8.9 mg/dL (2.5-4.9)
[2021-05-05 08:16] LABS: BG BASE EXCESS -10.8 mmol/L (-2.0-2.0); BG DEOXYHEMOGLOBIN 6.5 % (0.0-5.0); BG HCO3 ACT 16.3 mmol/L (22.0-26.0); BG METHEMOGLOBIN 0.5 % (0.0-1.5); BG OXYGEN SATURATION 93.5 % (92.0-98.5); BG PCO2 42.3 mmHg (35.0-45.0); BG PH 7.205 (7.350-7.450); BG PO2 80.6 mmHg (75.0-100.0); BG SAMPLE SITE RIGHT RADIAL; BG TOTAL HEMOGLOBIN 8.4 g/dL (12.0-18.0); BG VENT MODE VENT- PRVC
[2021-05-05] MEDS: FAMOTIDINE 20MG TABLET PO SCH (08:46)
[2021-05-05] MEDS: METOPROLOL TARTRATE 25MG TABLET PO SCH ×2 (08:47→21:00)
[2021-05-05] MEDS: CHOLECALCIFEROL (D3) 1000 UNIT TABLET PO SCH (08:48)
[2021-05-05] MEDS: ASPIRIN 81MG TABLET PO SCH (08:48)
[2021-05-05] MEDS: ZINC SULFATE 220 MG ( 50 ) CAPSULE PO SCH (08:48)
[2021-05-05] MEDS: ASCORBIC ACID 500 MG TABLET PO SCH ×2 (08:48→20:59)
[2021-05-05] MEDS ORDERED: SODIUM BICARBONATE 8.4% 1 MEQ/ML 50ML SYR IV NR (10:15)
[2021-05-05] MEDS: INSULIN GLARGINE UD 100 UNITS/ML SYR SUBCUT SCH (10:38)
[2021-05-05] MEDS: SODIUM BICARBONATE 150 MEQ in DEXTROSE 5% WATER 1,000 ML IV SCH (12:17)
[2021-05-05] MEDS ORDERED: PROPOFOL 10MG/ML 100ML 100 ML IV PRN (14:30)
[2021-05-06] VITALS (68 sets, daily range): BP systolic 92–139; BP diastolic 34–78
[2021-05-06] MEDS: BLOOD SUGAR DIAGNOSTIC STRIP TEST SCH ×4 (00:18→17:53)
[2021-05-06] MEDS: DEXTROSE 50% WATER 50ML SYRINGE IV PRN ×2 (00:19→12:20)
[2021-05-06] MEDS: FENTANYL CITRATE/PF 2,500 MCG in SODIUM CHLORIDE 0.9% 200 ML IV PRN ×3 (03:26→19:00)
[2021-05-06] MEDS: MIDAZOLAM HCL 100 MG in SODIUM CHLORIDE 0.9% 80 ML IV PRN ×3 (03:51→18:59)
[2021-05-06] MEDS: IPRATROPIUM/ALBUTEROL 0.5-3(2.5)MG/3ML NEB HHN SCH ×5 (05:04→20:38)
[2021-05-06] MEDS: LACTULOSE 20G/30ML UDC PO SCH ×3 (05:09→22:52)
[2021-05-06 05:44] LABS: BASOPHILS % 0.6 % (0.0-2.0); HEMOGLOBIN. 8.4 g/dL (14.0-18.0); LYMPHOCYTES % 10.1 % (20.0-50.0); MEAN CORPUSCULAR HEMOGLOBIN 26.3 pg (28.0-32.0); MEAN CORPUSCULAR VOLUME 78.5 fL (80.0-94.0); MEAN PLATELET VOLUME 8.4 fl (7.4-10.4); MONOCYTES % 8.1 % (2.0-8.0); NEUTROPHILS % 72.2 % (40.0-76.0); PLATELET 303 x1000/uL (130-400); RED BLOOD CELL COUNT 3.18 mill/uL (4.7-6.1)
[2021-05-06] MEDS: INSULIN LISPRO 100 UNITS/ML SUBCUT SCH ×4 (06:00→17:53)
[2021-05-06 06:03] LABS: CHLORIDE 111 mEq/L (98-107)
[2021-05-06 07:00] LABS: PHOSPHORUS 9.1 mg/dL (2.5-4.9)
[2021-05-06 09:29] LABS: BG BASE EXCESS -6.7 mmol/L (-2.0-2.0); BG CARBOXYHEMOGLOBIN 0.3 % (0.5-1.5); BG DEOXYHEMOGLOBIN 6.6 % (0.0-5.0); BG FRACTION INSPIRED OXYGEN 70; BG METHEMOGLOBIN 0.3 % (0.0-1.5); BG OXYGEN SATURATION 93.4 % (92.0-98.5); BG OXYHEMOGLOBIN 92.8 % (94.0-97.0); BG PCO2 53.2 mmHg (35.0-45.0); BG PH 7.214 (7.350-7.450); BG PO2 80.8 mmHg (75.0-100.0); BG SAMPLE SITE RIGHT RADIAL; BG TOTAL HEMOGLOBIN 9.1 g/dL (12.0-18.0); BG VENT MODE VENT - PRVC
[2021-05-06] MEDS: FAMOTIDINE 20MG TABLET PO SCH (09:43)
[2021-05-06] MEDS: ASCORBIC ACID 500 MG TABLET PO SCH ×2 (09:43→22:53)
[2021-05-06] MEDS: ZINC SULFATE 220 MG ( 50 ) CAPSULE PO SCH (09:43)
[2021-05-06] MEDS: CHOLECALCIFEROL (D3) 1000 UNIT TABLET PO SCH (09:43)
[2021-05-06] MEDS: ASPIRIN 81MG TABLET PO SCH (09:43)
[2021-05-06] MEDS: INSULIN GLARGINE UD 100 UNITS/ML SYR SUBCUT SCH (09:44)
[2021-05-06] MEDS: SODIUM BICARBONATE 150 MEQ in DEXTROSE 5% WATER 1,000 ML IV SCH (11:05)
[2021-05-06] MEDS: METOCLOPRAMIDE HCL 10MG/2ML VIAL IV SCH ×2 (12:19→19:06)
[2021-05-07] VITALS (84 sets, daily range): BP systolic 81–151; BP diastolic 47–95
[2021-05-07] MEDS: IPRATROPIUM/ALBUTEROL 0.5-3(2.5)MG/3ML NEB HHN SCH ×6 (00:36→21:26)
[2021-05-07] MEDS: METOCLOPRAMIDE HCL 10MG/2ML VIAL IV SCH ×4 (00:56→17:40)
[2021-05-07 05:25] LABS: HEMATOCRIT. 25.3 % (42.0-52.0); HEMOGLOBIN. 8.4 g/dL (14.0-18.0); MEAN CORPUSCULAR HEMOGLOBIN 25.9 pg (28.0-32.0); MEAN PLATELET VOLUME 8.2 fl (7.4-10.4); PLATELET 340 x1000/uL (130-400); RED BLOOD CELL COUNT 3.25 mill/uL (4.7-6.1); RED CELL DISTRIBUTION WIDTH 17.3 % (11.6-14.6)
[2021-05-07 05:34] LABS: CHLORIDE 112 mEq/L (98-107)
[2021-05-07] MEDS: INSULIN LISPRO 100 UNITS/ML SUBCUT SCH ×4 (06:00→17:11)
[2021-05-07] MEDS: BLOOD SUGAR DIAGNOSTIC STRIP TEST SCH ×4 (06:00→17:11)
[2021-05-07 06:04] LABS: PHOSPHORUS 9.3 mg/dL (2.5-4.9)
[2021-05-07] MEDS: LACTULOSE 20G/30ML UDC PO SCH ×3 (06:26→21:32)
[2021-05-07] MEDS ORDERED: POTASSIUM CHLORIDE 20MEQ/PACKET PO SCH (06:30)
[2021-05-07] MEDS: FENTANYL CITRATE/PF 2,500 MCG in SODIUM CHLORIDE 0.9% 200 ML IV PRN (07:11)
[2021-05-07 07:38] LABS: PLATELET ESTIMATE NORMAL
[2021-05-07] MEDS: ASPIRIN 81MG TABLET PO SCH (09:00)
[2021-05-07] MEDS ORDERED: POTASSIUM CHLORIDE INJ 40 MEQ in DEXT 5% WATER 250 ML IV SCH (09:00)
[2021-05-07 09:06] LABS: BG BASE EXCESS -6.1 mmol/L (-2.0-2.0); BG CARBOXYHEMOGLOBIN 0.1 % (0.5-1.5); BG DEOXYHEMOGLOBIN 2.7 % (0.0-5.0); BG FRACTION INSPIRED OXYGEN 60; BG HCO3 ACT 19.3 mmol/L (22.0-26.0); BG METHEMOGLOBIN 0.2 % (0.0-1.5); BG OXYGEN SATURATION 97.3 % (92.0-98.5); BG PCO2 37.1 mmHg (35.0-45.0); BG PH 7.333 (7.350-7.450); BG PO2 106.4 mmHg (75.0-100.0); BG SAMPLE SITE LEFT RADIAL; BG TOTAL RESPIRATORY RATE 28 b/min; BG VENT MODE VENT- PRVC
[2021-05-07] MEDS ORDERED: LIDOCAINE HCL 1% 20ML VIAL (Pyxis) INJ ONE (09:12)
[2021-05-07] MEDS: CHOLECALCIFEROL (D3) 1000 UNIT TABLET PO SCH (09:46)
[2021-05-07] MEDS: FAMOTIDINE 20MG TABLET PO SCH (09:46)
[2021-05-07] MEDS: ZINC SULFATE 220 MG ( 50 ) CAPSULE PO SCH (09:47)
[2021-05-07] MEDS: ASCORBIC ACID 500 MG TABLET PO SCH ×2 (09:47→21:32)
[2021-05-07] MEDS: INSULIN GLARGINE UD 100 UNITS/ML SYR SUBCUT SCH (09:47)
[2021-05-07] MEDS: SODIUM BICARBONATE 150 MEQ in DEXTROSE 5% WATER 1,000 ML IV SCH (10:17)
[2021-05-07] MEDS ORDERED: LORAZEPAM 2MG/ML CPJ IV PRN (13:30)
[2021-05-07 13:46] LABS: HEPATITIS B SURFACE ANTIGEN NEGATIVE
[2021-05-08] VITALS (87 sets, daily range): BP systolic 126–172; BP diastolic 66–104
[2021-05-08] MEDS: METOCLOPRAMIDE HCL 10MG/2ML VIAL IV SCH ×4 (00:57→17:55)
[2021-05-08] MEDS: INSULIN LISPRO 100 UNITS/ML SUBCUT SCH ×4 (00:58→17:55)
[2021-05-08] MEDS: IPRATROPIUM/ALBUTEROL 0.5-3(2.5)MG/3ML NEB HHN SCH ×6 (01:17→21:21)
[2021-05-08] MEDS: LACTULOSE 20G/30ML UDC PO SCH (05:45)
[2021-05-08] MEDS: BLOOD SUGAR DIAGNOSTIC STRIP TEST SCH ×4 (06:00→17:51)
[2021-05-08 08:19] LABS: BG BASE EXCESS 2.3 mmol/L (-2.0-2.0); BG CARBOXYHEMOGLOBIN 0.3 % (0.5-1.5); BG DEOXYHEMOGLOBIN 1.8 % (0.0-5.0); BG HCO3 ACT 25.1 mmol/L (22.0-26.0); BG METHEMOGLOBIN 0.2 % (0.0-1.5); BG OXYGEN SATURATION 98.2 % (92.0-98.5); BG OXYHEMOGLOBIN 97.7 % (94.0-97.0); BG PH 7.512 (7.350-7.450); BG PO2 124.3 mmHg (75.0-100.0); BG SAMPLE SITE RIGHT RADIAL; BG TOTAL HEMOGLOBIN 9.9 g/dL (12.0-18.0); BG VENT MODE VENT- PRVC
[2021-05-08] MEDS: ASCORBIC ACID 500 MG TABLET PO SCH ×2 (08:34→21:32)
[2021-05-08] MEDS: ZINC SULFATE 220 MG ( 50 ) CAPSULE PO SCH (08:34)
[2021-05-08] MEDS: CHOLECALCIFEROL (D3) 1000 UNIT TABLET PO SCH (08:34)
[2021-05-08] MEDS: ASPIRIN 81MG TABLET PO SCH (08:34)
[2021-05-08] MEDS: FAMOTIDINE 20MG TABLET PO SCH (08:34)
[2021-05-08] MEDS ORDERED: MORPHINE SULFATE 2 MG/ML CPJ (NOT FOR IM USE) IV PRN (09:00)
[2021-05-08] MEDS: METOPROLOL TARTRATE 25MG TABLET GT SCH ×2 (09:12→21:32)
[2021-05-08] MEDS: ACETAMINOPHEN 325MG TABLET PO PRN (09:13)
[2021-05-08] MEDS: INSULIN GLARGINE UD 100 UNITS/ML SYR SUBCUT SCH (09:14)
[2021-05-08] MEDS ORDERED: NALOXONE HCL 0.4MG/ML VIAL IV PRN (09:30)
[2021-05-08 10:08] LABS: HEMATOCRIT. 24.4 % (42.0-52.0); HEMOGLOBIN. 8.4 g/dL (14.0-18.0); MEAN CORPUSCULAR VOLUME 75.5 fL (80.0-94.0); MEAN PLATELET VOLUME 7.9 fl (7.4-10.4); PLATELET 413 x1000/uL (130-400); RED BLOOD CELL COUNT 3.23 mill/uL (4.7-6.1); RED CELL DISTRIBUTION WIDTH 16.8 % (11.6-14.6)
[2021-05-08 10:16] LABS: CHLORIDE 108 mEq/L (98-107)
[2021-05-08 10:22] LABS: PHOSPHORUS 4.9 mg/dL (2.5-4.9)
[2021-05-08] MEDS: SODIUM BICARBONATE 150 MEQ in DEXTROSE 5% WATER 1,000 ML IV SCH (10:45)
[2021-05-08 10:58] LABS: PLATELET ESTIMATE INCREASED
[2021-05-08] MEDS ORDERED: POTASSIUM CHLORIDE 20MEQ/PACKET PO SCH (11:30)
[2021-05-08] MEDS ORDERED: POTASSIUM CHLORIDE INJ 40 MEQ in DEXT 5% WATER 250 ML IV SCH (13:00)
[2021-05-09] VITALS (45 sets, daily range): BP systolic 119–162; BP diastolic 67–98
[2021-05-09] MEDS: IPRATROPIUM/ALBUTEROL 0.5-3(2.5)MG/3ML NEB HHN SCH ×7 (01:07→23:52)
[2021-05-09] MEDS: METOCLOPRAMIDE HCL 10MG/2ML VIAL IV SCH ×5 (01:43→23:24)
[2021-05-09] MEDS: BLOOD SUGAR DIAGNOSTIC STRIP TEST SCH ×5 (06:00→23:24)
[2021-05-09] MEDS: INSULIN LISPRO 100 UNITS/ML SUBCUT SCH ×5 (06:00→23:24)
[2021-05-09 06:05] LABS: HEMATOCRIT. 22.4 % (42.0-52.0); HEMOGLOBIN. 7.7 g/dL (14.0-18.0); MEAN CORPUSCULAR HEMOGLOBIN 26.1 pg (28.0-32.0); MEAN CORPUSCULAR VOLUME 75.9 fL (80.0-94.0); MEAN PLATELET VOLUME 7.8 fl (7.4-10.4); PLATELET 418 x1000/uL (130-400); RED BLOOD CELL COUNT 2.95 mill/uL (4.7-6.1); RED CELL DISTRIBUTION WIDTH 16.7 % (11.6-14.6)
[2021-05-09] MEDS ORDERED: POTASSIUM CHLORIDE 20MEQ/PACKET PO SCH (07:00)
[2021-05-09] MEDS: CHOLECALCIFEROL (D3) 1000 UNIT TABLET PO SCH (08:24)
[2021-05-09] MEDS: ASCORBIC ACID 500 MG TABLET PO SCH ×2 (08:24→20:37)
[2021-05-09] MEDS: FAMOTIDINE 20MG TABLET PO SCH (08:24)
[2021-05-09] MEDS: ZINC SULFATE 220 MG ( 50 ) CAPSULE PO SCH (08:24)
[2021-05-09] MEDS: ASPIRIN 81MG TABLET PO SCH (08:25)
[2021-05-09] MEDS: METOPROLOL TARTRATE 25MG TABLET GT SCH ×2 (08:25→20:37)
[2021-05-09] MEDS: SODIUM BICARBONATE 150 MEQ in DEXTROSE 5% WATER 1,000 ML IV SCH (08:26)
[2021-05-09] MEDS ORDERED: POTASSIUM CHLORIDE INJ 40 MEQ in DEXT 5% WATER 250 ML IV SCH (09:00)
[2021-05-09 09:29] LABS: BG BASE EXCESS 1.2 mmol/L (-2.0-2.0); BG CARBOXYHEMOGLOBIN 0.6 % (0.5-1.5); BG DEOXYHEMOGLOBIN 2.7 % (0.0-5.0); BG FRACTION INSPIRED OXYGEN 50; BG METHEMOGLOBIN 0.3 % (0.0-1.5); BG OXYGEN SATURATION 97.3 % (92.0-98.5); BG OXYHEMOGLOBIN 96.4 % (94.0-97.0); BG PCO2 30.1 mmHg (35.0-45.0); BG PH 7.519 (7.350-7.450); BG PO2 97.9 mmHg (75.0-100.0); BG SAMPLE SITE RIGHT RADIAL; BG TOTAL HEMOGLOBIN 7.4 g/dL (12.0-18.0); BG VENT MODE PRVC-AC
[2021-05-09 10:17] LABS: PLATELET ESTIMATE INCREASED
[2021-05-09] MEDS: INSULIN GLARGINE UD 100 UNITS/ML SYR SUBCUT SCH (11:01)
[2021-05-09] MEDS: POTASSIUM CHLORIDE INJ 40 MEQ in DEXT 5% WATER 250 ML IV SCH (20:37)
[2021-05-09] MEDS: LOPERAMIDE 2MG/15ML UDC GT SCH (20:37)
[2021-05-09] MEDS: CLONIDINE 0.1MG TABLET PO PRN (23:24)
[2021-05-10] VITALS (12 sets, daily range): BP systolic 136–159; BP diastolic 65–95
[2021-05-10] MEDS: IPRATROPIUM/ALBUTEROL 0.5-3(2.5)MG/3ML NEB HHN SCH ×5 (03:46→20:16)
[2021-05-10] MEDS: BLOOD SUGAR DIAGNOSTIC STRIP TEST SCH ×3 (05:07→17:16)
[2021-05-10] MEDS: METOCLOPRAMIDE HCL 10MG/2ML VIAL IV SCH ×4 (05:07→23:43)
[2021-05-10] MEDS: INSULIN LISPRO 100 UNITS/ML SUBCUT SCH ×4 (05:08→23:44)
[2021-05-10 07:20] LABS: HEMATOCRIT. 24.1 % (42.0-52.0); MEAN CORPUSCULAR HEMOGLOBIN 25.8 pg (28.0-32.0); MEAN PLATELET VOLUME 8.2 fl (7.4-10.4); PLATELET 481 x1000/uL (130-400); RED CELL DISTRIBUTION WIDTH 17.3 % (11.6-14.6)
[2021-05-10 08:23] LABS: PHOSPHORUS 4.8 mg/dL (2.5-4.9)
[2021-05-10] MEDS: ASPIRIN 81MG TABLET PO SCH (09:08)
[2021-05-10] MEDS: FAMOTIDINE 20MG TABLET PO SCH (09:08)
[2021-05-10] MEDS: ZINC SULFATE 220 MG ( 50 ) CAPSULE PO SCH (09:08)
[2021-05-10] MEDS: SODIUM BICARBONATE 150 MEQ in DEXTROSE 5% WATER 1,000 ML IV SCH (09:08)
[2021-05-10] MEDS: POTASSIUM CHLORIDE INJ 40 MEQ in DEXT 5% WATER 250 ML IV SCH ×2 (09:08→20:08)
[2021-05-10] MEDS: LOPERAMIDE 2MG/15ML UDC GT SCH ×2 (09:09→20:09)
[2021-05-10] MEDS: METOPROLOL TARTRATE 25MG TABLET GT SCH ×2 (09:09→20:09)
[2021-05-10] MEDS: ASCORBIC ACID 500 MG TABLET PO SCH ×2 (09:09→20:08)
[2021-05-10] MEDS: CHOLECALCIFEROL (D3) 1000 UNIT TABLET PO SCH (09:09)
[2021-05-10] MEDS ORDERED: POTASSIUM CHLORIDE 20MEQ TABLET SR PO NR (11:15)
[2021-05-10] MEDS: INSULIN GLARGINE UD 100 UNITS/ML SYR SUBCUT SCH (11:20)
[2021-05-10] MEDS ORDERED: POTASSIUM CHLORIDE INJ 40 MEQ in DEXT 5% WATER 250 ML IV NR (13:00)
[2021-05-10 21:25] LABS: PLATELET ESTIMATE INCREASED
[2021-05-11] VITALS (17 sets, daily range): BP systolic 141–169; BP diastolic 75–95
[2021-05-11] MEDS: IPRATROPIUM/ALBUTEROL 0.5-3(2.5)MG/3ML NEB HHN SCH ×5 (00:10→20:44)
[2021-05-11] MEDS: INSULIN LISPRO 100 UNITS/ML SUBCUT SCH ×3 (05:06→18:00)
[2021-05-11] MEDS: METOCLOPRAMIDE HCL 10MG/2ML VIAL IV SCH (05:06)
[2021-05-11] MEDS: BLOOD SUGAR DIAGNOSTIC STRIP TEST SCH ×4 (05:07→18:13)
[2021-05-11 07:24] LABS: PHOSPHORUS 5.2 mg/dL (2.5-4.9)
[2021-05-11 07:35] LABS: BASOPHILS % 0.4 % (0.0-2.0); EOSINOPHILS % 12.3 % (0.0-5.0); HEMATOCRIT. 21.2 % (42.0-52.0); HEMOGLOBIN. 7.1 g/dL (14.0-18.0); MEAN CORPUSCULAR HEMOGLOBIN 26.4 pg (28.0-32.0); MEAN CORPUSCULAR VOLUME 78.8 fL (80.0-94.0); MEAN PLATELET VOLUME 8.1 fl (7.4-10.4); MONOCYTES % 6.8 % (2.0-8.0); NEUTROPHILS % 71.5 % (40.0-76.0); PLATELET 477 x1000/uL (130-400); RED BLOOD CELL COUNT 2.69 mill/uL (4.7-6.1)
[2021-05-11] MEDS: FAMOTIDINE 20MG TABLET PO SCH (09:00)
[2021-05-11] MEDS: LOPERAMIDE 2MG/15ML UDC GT SCH ×2 (09:00→20:18)
[2021-05-11 09:30] LABS: BG BASE EXCESS 1.6 mmol/L (-2.0-2.0); BG CARBOXYHEMOGLOBIN 0.3 % (0.5-1.5); BG FRACTION INSPIRED OXYGEN 40; BG HCO3 ACT 25.2 mmol/L (22.0-26.0); BG METHEMOGLOBIN 0.1 % (0.0-1.5); BG OXYHEMOGLOBIN 97.6 % (94.0-97.0); BG PCO2 34.9 mmHg (35.0-45.0); BG PH 7.477 (7.350-7.450); BG PO2 114.2 mmHg (75.0-100.0); BG SAMPLE SITE RIGHT RADIAL; BG TOTAL HEMOGLOBIN 7.4 g/dL (12.0-18.0); BG VENT MODE VENT - PRVC
[2021-05-11] MEDS: INSULIN GLARGINE UD 100 UNITS/ML SYR SUBCUT SCH (10:00)
[2021-05-11] MEDS: ASCORBIC ACID 500 MG TABLET PO SCH ×2 (12:11→20:19)
[2021-05-11] MEDS: ZINC SULFATE 220 MG ( 50 ) CAPSULE PO SCH (12:11)
[2021-05-11] MEDS: ASPIRIN 81MG TABLET PO SCH (12:11)
[2021-05-11] MEDS: CHOLECALCIFEROL (D3) 1000 UNIT TABLET PO SCH (12:12)
[2021-05-11] MEDS: POTASSIUM CHLORIDE 20MEQ/PACKET GT SCH ×2 (12:13→20:18)
[2021-05-11] MEDS: METOPROLOL TARTRATE 25MG TABLET GT SCH ×2 (12:14→20:20)
[2021-05-11] MEDS: POTASSIUM CHLORIDE INJ 40 MEQ in DEXT 5% WATER 250 ML IV SCH ×2 (12:30→20:18)
[2021-05-11] MEDS: GUAIFENESIN 200MG/10ML SUGAR FREE UDC PO SCH (18:29)
[2021-05-12] VITALS (41 sets, daily range): BP systolic 88–159; BP diastolic 60–92
[2021-05-12] MEDS: IPRATROPIUM/ALBUTEROL 0.5-3(2.5)MG/3ML NEB HHN SCH ×6 (00:05→20:52)
[2021-05-12] MEDS: GUAIFENESIN 200MG/10ML SUGAR FREE UDC PO SCH ×4 (00:15→18:15)
[2021-05-12] MEDS ORDERED: RACEPINEPHRINE 2.25% 0.5ML NEB VIAL HHN SCH (01:00)
[2021-05-12] MEDS: BLOOD SUGAR DIAGNOSTIC STRIP TEST SCH ×3 (05:30→12:00)
[2021-05-12] MEDS: INSULIN LISPRO 100 UNITS/ML SUBCUT SCH ×4 (05:57→18:28)
[2021-05-12 08:14] LABS: MEAN CORPUSCULAR HEMOGLOBIN 25.5 pg (28.0-32.0); MEAN CORPUSCULAR VOLUME 79.5 fL (80.0-94.0); PLATELET 475 x1000/uL (130-400); RED BLOOD CELL COUNT 2.35 mill/uL (4.7-6.1); RED CELL DISTRIBUTION WIDTH 18.2 % (11.6-14.6)
[2021-05-12] MEDS ORDERED: RACEPINEPHRINE 2.25% 0.5ML NEB VIAL ONE (09:00)
[2021-05-12] MEDS: LOPERAMIDE 2MG/15ML UDC GT SCH ×2 (09:00→21:01)
[2021-05-12] MEDS: METOPROLOL TARTRATE 25MG TABLET GT SCH (09:00)
[2021-05-12 09:40] LABS: HEMATOCRIT 23.3 % (42.0-52.0); HEMOGLOBIN 7.8 g/dL (14.0-18.0); MEAN CORPUSCULAR HEMOGLOBIN 27.4 pg (28.0-32.0); MEAN CORPUSCULAR VOLUME 81.7 fL (80.0-94.0); PLATELET 355 x1000/uL (130-400); RED BLOOD CELL COUNT 2.85 mill/uL (4.7-6.1); RED CELL DISTRIBUTION WIDTH 16.3 % (11.6-14.6)
[2021-05-12 09:44] LABS: BG BASE EXCESS -2.7 mmol/L (-2.0-2.0); BG CARBOXYHEMOGLOBIN 0.3 % (0.5-1.5); BG DEOXYHEMOGLOBIN 25.3 % (0.0-5.0); BG FRACTION INSPIRED OXYGEN 100; BG HCO3 ACT 20.3 mmol/L (22.0-26.0); BG METHEMOGLOBIN 0.3 % (0.0-1.5); BG OXYGEN SATURATION 74.5 % (92.0-98.5); BG OXYHEMOGLOBIN 74.1 % (94.0-97.0); BG PCO2 28.3 mmHg (35.0-45.0); BG PH 7.474 (7.350-7.450); BG PO2 38.5 mmHg (75.0-100.0); BG SAMPLE SITE LEFT RADIAL; BG TOTAL HEMOGLOBIN 8.1 g/dL (12.0-18.0); BG VENT MODE VENT - PRVC
[2021-05-12 09:45] LABS: INR 1.2; PROTHROMBIN TIME 12.6 sec (9.6-11.0)
[2021-05-12 09:53] LABS: PHOSPHORUS 5.4 mg/dL (2.5-4.9)
[2021-05-12] MEDS ORDERED: RACEPINEPHRINE 2.25% 0.5ML NEB VIAL HHN PRN (10:00)
[2021-05-12] MEDS ORDERED: DESMOPRESSIN ACETATE 4MCG/ML AMP IV ONE (10:00)
[2021-05-12] MEDS: INSULIN GLARGINE UD 100 UNITS/ML SYR SUBCUT SCH (10:00)
[2021-05-12] MEDS ORDERED: DESMOPRESSIN ACETATE 20 MCG in SODIUM CHLORIDE 0.9% 50 ML IV SCH (11:00)
[2021-05-12] MEDS: POTASSIUM CHLORIDE INJ 40 MEQ in DEXT 5% WATER 250 ML IV SCH (12:27)
[2021-05-12] MEDS: ZINC SULFATE 220 MG ( 50 ) CAPSULE PO SCH (12:28)
[2021-05-12] MEDS: ASCORBIC ACID 500 MG TABLET PO SCH ×2 (12:28→21:01)
[2021-05-12] MEDS: POTASSIUM CHLORIDE 20MEQ/PACKET GT SCH (12:28)
[2021-05-12] MEDS: FAMOTIDINE 20MG TABLET PO SCH (12:28)
[2021-05-12] MEDS: CHOLECALCIFEROL (D3) 1000 UNIT TABLET PO SCH (12:28)
[2021-05-12] MEDS ORDERED: DESMOPRESSIN ACETATE 4MCG/ML AMP ONE (12:33)
[2021-05-12 13:44] LABS: PLATELET ESTIMATE INCREASED
[2021-05-12] MEDS: PIPERACILLIN/TAZOBACTAM 3.375 G in DEXTROSE 5% WATER 50 ML IV SCH (17:59)
[2021-05-12 19:25] LABS: HEMATOCRIT 24.7 % (42.0-52.0); HEMOGLOBIN 8.3 g/dL (14.0-18.0)
[2021-05-12] MEDS ORDERED: VANCOMYCIN 1500MG in DEXTROSE 5% WATER 250ML IV NR (20:00)
[2021-05-12] MEDS: MEROPENEM 500 MG in SODIUM CHLORIDE 0.9% 50 ML IV SCH (20:00)
[2021-05-12] MEDS ORDERED: IBUPROFEN 200MG TABLET PO PRN (21:00)
[2021-05-13] VITALS (11 sets, daily range): BP systolic 118–174; BP diastolic 54–90
[2021-05-13] MEDS: INSULIN LISPRO 100 UNITS/ML SUBCUT SCH ×5 (00:01→23:48)
[2021-05-13] MEDS: IPRATROPIUM/ALBUTEROL 0.5-3(2.5)MG/3ML NEB HHN SCH ×6 (00:50→20:25)
[2021-05-13] MEDS: GUAIFENESIN 200MG/10ML SUGAR FREE UDC PO SCH ×5 (01:05→23:46)
[2021-05-13 05:43] LABS: HEMATOCRIT. 22.5 % (42.0-52.0); HEMOGLOBIN. 7.3 g/dL (14.0-18.0); MEAN CORPUSCULAR HEMOGLOBIN 27.4 pg (28.0-32.0); MEAN CORPUSCULAR VOLUME 84.9 fL (80.0-94.0); MEAN PLATELET VOLUME 9.2 fl (7.4-10.4); PLATELET 301 x1000/uL (130-400); RED BLOOD CELL COUNT 2.65 mill/uL (4.7-6.1); RED CELL DISTRIBUTION WIDTH 16.5 % (11.6-14.6)
[2021-05-13 05:56] LABS: PHOSPHORUS 5.3 mg/dL (2.5-4.9)
[2021-05-13] MEDS: OXYMETAZOLINE HCL NASAL SPRAY 15ML BOTHNSTRLS SCH ×2 (09:00→20:56)
[2021-05-13] MEDS: LOPERAMIDE 2MG/15ML UDC GT SCH ×2 (09:18→20:56)
[2021-05-13] MEDS: MEROPENEM 500 MG in SODIUM CHLORIDE 0.9% 50 ML IV SCH ×2 (09:18→20:56)
[2021-05-13] MEDS: FAMOTIDINE 20MG TABLET PO SCH (09:18)
[2021-05-13] MEDS: PIPERACILLIN/TAZOBACTAM 3.375 G in DEXTROSE 5% WATER 50 ML IV SCH (09:18)
[2021-05-13 10:35] LABS: PLATELET ESTIMATE NORMAL
[2021-05-13] MEDS: SODIUM CHLORIDE 0.45% 1,000 ML IV SCH (10:35)
[2021-05-13] MEDS: INSULIN GLARGINE UD 100 UNITS/ML SYR SUBCUT SCH (10:36)
[2021-05-13] MEDS ORDERED: VANCOMYCIN 1 G PREMIX 200 ML IV SCH (11:00)
[2021-05-13 11:04] LABS: BG BASE EXCESS -2.8 mmol/L (-2.0-2.0); BG CARBOXYHEMOGLOBIN 0.2 % (0.5-1.5); BG DEOXYHEMOGLOBIN 1.1 % (0.0-5.0); BG FRACTION INSPIRED OXYGEN 100; BG HCO3 ACT 20.9 mmol/L (22.0-26.0); BG METHEMOGLOBIN 0.6 % (0.0-1.5); BG OXYGEN SATURATION 98.9 % (92.0-98.5); BG OXYHEMOGLOBIN 98.1 % (94.0-97.0); BG PCO2 31.1 mmHg (35.0-45.0); BG PH 7.445 (7.350-7.450); BG PO2 397.4 mmHg (75.0-100.0); BG SAMPLE SITE LEFT RADIAL; BG TOTAL HEMOGLOBIN 7.1 g/dL (12.0-18.0); BG TOTAL RESPIRATORY RATE 26 b/min; BG VENT MODE VENT- PRVC
[2021-05-13 11:06] LABS: HEMATOCRIT. 18.7 % (42.0-52.0)
[2021-05-14] VITALS (20 sets, daily range): BP systolic 114–154; BP diastolic 56–92
[2021-05-14] MEDS: IPRATROPIUM/ALBUTEROL 0.5-3(2.5)MG/3ML NEB HHN SCH ×7 (00:03→20:39)
[2021-05-14] MEDS: GUAIFENESIN 200MG/10ML SUGAR FREE UDC PO SCH ×4 (06:17→23:36)
[2021-05-14] MEDS: INSULIN LISPRO 100 UNITS/ML SUBCUT SCH ×4 (06:22→23:36)
[2021-05-14 08:14] LABS: BASOPHILS % 0.6 % (0.0-2.0); EOSINOPHILS % 7.5 % (0.0-5.0); LYMPHOCYTES % 8.1 % (20.0-50.0); MEAN CORPUSCULAR VOLUME 84.9 fL (80.0-94.0); MEAN PLATELET VOLUME 8.9 fl (7.4-10.4); NEUTROPHILS % 75.8 % (40.0-76.0); PLATELET 293 x1000/uL (130-400); RED BLOOD CELL COUNT 2.13 mill/uL (4.7-6.1); RED CELL DISTRIBUTION WIDTH 16.9 % (11.6-14.6)
[2021-05-14 08:25] LABS: HEMATOCRIT. 18.1 % (42.0-52.0)
[2021-05-14 08:45] LABS: PHOSPHORUS 4.7 mg/dL (2.5-4.9)
[2021-05-14] MEDS: OXYMETAZOLINE HCL NASAL SPRAY 15ML BOTHNSTRLS SCH ×2 (08:53→20:48)
[2021-05-14] MEDS: MEROPENEM 500 MG in SODIUM CHLORIDE 0.9% 50 ML IV SCH ×2 (08:53→20:41)
[2021-05-14] MEDS: FAMOTIDINE 20MG TABLET PO SCH (08:53)
[2021-05-14] MEDS: LOPERAMIDE 2MG/15ML UDC GT SCH ×2 (08:53→21:22)
[2021-05-14] MEDS: INSULIN GLARGINE UD 100 UNITS/ML SYR SUBCUT SCH (10:04)
[2021-05-14 14:49] LABS: BG BASE EXCESS -3.3 mmol/L (-2.0-2.0); BG CARBOXYHEMOGLOBIN 0.3 % (0.5-1.5); BG DEOXYHEMOGLOBIN 1.9 % (0.0-5.0); BG FRACTION INSPIRED OXYGEN 40; BG HCO3 ACT 20.5 mmol/L (22.0-26.0); BG METHEMOGLOBIN 0.5 % (0.0-1.5); BG OXYGEN SATURATION 98.1 % (92.0-98.5); BG OXYHEMOGLOBIN 97.3 % (94.0-97.0); BG PH 7.439 (7.350-7.450); BG PO2 130.2 mmHg (75.0-100.0); BG SAMPLE SITE RIGHT RADIAL; BG TOTAL HEMOGLOBIN 6.5 g/dL (12.0-18.0); BG VENT MODE PRVC
[2021-05-14 16:22] LABS: HEMATOCRIT 19.1 % (42.0-52.0); HEMOGLOBIN 6.4 g/dL (14.0-18.0)
[2021-05-14] MEDS ORDERED: POTASSIUM CHLORIDE 20MEQ TABLET SR PO NR (17:00)
[2021-05-14] MEDS ORDERED: VANCOMYCIN 750 MG PREMIX 150 ML IV SCH (20:00)
[2021-05-14] MEDS: SODIUM CHLORIDE 0.45% 1,000 ML IV SCH (20:41)
[2021-05-14 21:43] LABS: HEMATOCRIT 22.8 % (42.0-52.0); HEMOGLOBIN 7.6 g/dL (14.0-18.0)
[2021-05-15] VITALS (12 sets, daily range): BP systolic 137–160; BP diastolic 64–91
[2021-05-15] MEDS: IPRATROPIUM/ALBUTEROL 0.5-3(2.5)MG/3ML NEB HHN SCH ×5 (00:01→16:12)
[2021-05-15] MEDS: SODIUM CHLORIDE 0.45% 1,000 ML IV SCH ×2 (03:45→11:38)
[2021-05-15] MEDS: GUAIFENESIN 200MG/10ML SUGAR FREE UDC PO SCH ×4 (05:57→23:40)
[2021-05-15] MEDS: INSULIN LISPRO 100 UNITS/ML SUBCUT SCH ×4 (05:57→23:46)
[2021-05-15 07:54] LABS: BASOPHILS % 0.5 % (0.0-2.0); EOSINOPHILS % 9.6 % (0.0-5.0); HEMATOCRIT. 22.4 % (42.0-52.0); HEMOGLOBIN. 7.7 g/dL (14.0-18.0); LYMPHOCYTES % 7.3 % (20.0-50.0); MEAN CORPUSCULAR HEMOGLOBIN 29.3 pg (28.0-32.0); MEAN CORPUSCULAR VOLUME 85.7 fL (80.0-94.0); MEAN PLATELET VOLUME 8.9 fl (7.4-10.4); MONOCYTES % 8.8 % (2.0-8.0); NEUTROPHILS % 73.8 % (40.0-76.0); PLATELET 277 x1000/uL (130-400); RED BLOOD CELL COUNT 2.62 mill/uL (4.7-6.1)
[2021-05-15] MEDS: LOPERAMIDE 2MG/15ML UDC GT SCH ×2 (08:32→20:18)
[2021-05-15] MEDS: FAMOTIDINE 20MG TABLET PO SCH (08:32)
[2021-05-15] MEDS: MEROPENEM 500 MG in SODIUM CHLORIDE 0.9% 50 ML IV SCH ×2 (08:32→20:18)
[2021-05-15 08:58] LABS: PHOSPHORUS 4.4 mg/dL (2.5-4.9)
[2021-05-15] MEDS: OXYMETAZOLINE HCL NASAL SPRAY 15ML BOTHNSTRLS SCH ×2 (09:03→20:18)
[2021-05-15] MEDS: INSULIN GLARGINE UD 100 UNITS/ML SYR SUBCUT SCH (10:53)
[2021-05-15 12:15] LABS: BG BASE EXCESS -3.1 mmol/L (-2.0-2.0); BG CARBOXYHEMOGLOBIN 0.6 % (0.5-1.5); BG DEOXYHEMOGLOBIN 1.5 % (0.0-5.0); BG FRACTION INSPIRED OXYGEN 40; BG HCO3 ACT 20.5 mmol/L (22.0-26.0); BG METHEMOGLOBIN 0.5 % (0.0-1.5); BG OXYGEN SATURATION 98.5 % (92.0-98.5); BG OXYHEMOGLOBIN 97.4 % (94.0-97.0); BG PCO2 30.5 mmHg (35.0-45.0); BG PH 7.446 (7.350-7.450); BG PO2 141.9 mmHg (75.0-100.0); BG SAMPLE SITE RIGHT RADIAL; BG TOTAL HEMOGLOBIN 6.7 g/dL (12.0-18.0); BG VENT MODE VENT - AC
[2021-05-15] MEDS ORDERED: VANCOMYCIN 750 MG PREMIX 150 ML IV NR (13:00)
[2021-05-15] MEDS: DEXTROSE 5% WATER 1,000 ML IV SCH ×2 (15:03→23:40)
[2021-05-15] MEDS: POTASSIUM CHLORIDE 20MEQ TABLET SR PO SCH (15:03)
[2021-05-16] VITALS (17 sets, daily range): BP systolic 111–160; BP diastolic 58–98
[2021-05-16] MEDS: IPRATROPIUM/ALBUTEROL 0.5-3(2.5)MG/3ML NEB HHN SCH ×5 (01:04→21:07)
[2021-05-16] MEDS: GUAIFENESIN 200MG/10ML SUGAR FREE UDC PO SCH ×3 (05:37→18:51)
[2021-05-16] MEDS: INSULIN LISPRO 100 UNITS/ML SUBCUT SCH ×4 (05:38→23:43)
[2021-05-16 05:54] LABS: BASOPHILS % 0.7 % (0.0-2.0); EOSINOPHILS % 8.6 % (0.0-5.0); HEMOGLOBIN. 7.1 g/dL (14.0-18.0); LYMPHOCYTES % 7.7 % (20.0-50.0); MEAN CORPUSCULAR HEMOGLOBIN 28.9 pg (28.0-32.0); MEAN CORPUSCULAR VOLUME 85.8 fL (80.0-94.0); MEAN PLATELET VOLUME 9.1 fl (7.4-10.4); MONOCYTES % 8.1 % (2.0-8.0); NEUTROPHILS % 74.9 % (40.0-76.0); PLATELET 285 x1000/uL (130-400); RED BLOOD CELL COUNT 2.44 mill/uL (4.7-6.1); RED CELL DISTRIBUTION WIDTH 17.1 % (11.6-14.6)
[2021-05-16 06:26] LABS: PHOSPHORUS 3.4 mg/dL (2.5-4.9)
[2021-05-16] MEDS: DEXTROSE 5% WATER 1,000 ML IV SCH ×3 (06:45→23:24)
[2021-05-16] MEDS: MEROPENEM 500 MG in SODIUM CHLORIDE 0.9% 50 ML IV SCH (07:00)
[2021-05-16 07:52] LABS: HEMATOCRIT. 20.9 % (42.0-52.0)
[2021-05-16] MEDS: FAMOTIDINE 20MG TABLET PO SCH (09:54)
[2021-05-16] MEDS: OXYMETAZOLINE HCL NASAL SPRAY 15ML BOTHNSTRLS SCH ×2 (09:54→20:24)
[2021-05-16] MEDS: LOPERAMIDE 2MG/15ML UDC GT SCH ×2 (09:54→20:24)
[2021-05-16] MEDS: POTASSIUM CHLORIDE 20MEQ TABLET SR PO SCH (09:54)
[2021-05-16] MEDS: INSULIN GLARGINE UD 100 UNITS/ML SYR SUBCUT SCH (10:04)
[2021-05-16] MEDS: CEFEPIME 2,000 MG in DEXT 5% WATER 100 ML IV SCH ×2 (13:29→23:28)
[2021-05-16] MEDS: FERROUS SULFATE 325MG TABLET PO SCH ×2 (14:33→18:51)
[2021-05-17] VITALS (13 sets, daily range): BP systolic 111–151; BP diastolic 49–88
[2021-05-17] MEDS: GUAIFENESIN 200MG/10ML SUGAR FREE UDC PO SCH ×4 (00:29→17:42)
[2021-05-17] MEDS: IPRATROPIUM/ALBUTEROL 0.5-3(2.5)MG/3ML NEB HHN SCH ×6 (01:31→20:14)
[2021-05-17] MEDS: BLOOD SUGAR DIAGNOSTIC STRIP TEST SCH ×4 (05:42→23:58)
[2021-05-17] MEDS: INSULIN LISPRO 100 UNITS/ML SUBCUT SCH ×3 (05:47→17:43)
[2021-05-17 06:57] LABS: EOSINOPHILS % 6.6 % (0.0-5.0); HEMATOCRIT. 23.5 % (42.0-52.0); LYMPHOCYTES % 9.7 % (20.0-50.0); MEAN CORPUSCULAR HEMOGLOBIN 29.2 pg (28.0-32.0); MEAN CORPUSCULAR VOLUME 86.3 fL (80.0-94.0); MONOCYTES % 8.9 % (2.0-8.0); NEUTROPHILS % 73.8 % (40.0-76.0); PLATELET 277 x1000/uL (130-400); RED BLOOD CELL COUNT 2.73 mill/uL (4.7-6.1); RED CELL DISTRIBUTION WIDTH 16.8 % (11.6-14.6)
[2021-05-17] MEDS: CEFEPIME 2,000 MG in DEXT 5% WATER 100 ML IV SCH ×2 (09:12→20:38)
[2021-05-17] MEDS: POTASSIUM CHLORIDE 20MEQ TABLET SR PO SCH (09:13)
[2021-05-17] MEDS: FERROUS SULFATE 325MG TABLET PO SCH ×3 (09:13→17:42)
[2021-05-17] MEDS: FAMOTIDINE 20MG TABLET PO SCH (09:13)
[2021-05-17] MEDS: OXYMETAZOLINE HCL NASAL SPRAY 15ML BOTHNSTRLS SCH ×2 (09:13→20:38)
[2021-05-17] MEDS: INSULIN GLARGINE UD 100 UNITS/ML SYR SUBCUT SCH (09:47)
[2021-05-17] MEDS: DEXTROSE 5% WATER 1,000 ML IV SCH ×2 (12:00→14:48)
[2021-05-17] MEDS: LOPERAMIDE 2MG/15ML UDC GT SCH (13:08)
[2021-05-18] VITALS (12 sets, daily range): BP systolic 96–155; BP diastolic 79–120
[2021-05-18] MEDS: INSULIN LISPRO 100 UNITS/ML SUBCUT SCH ×4 (00:02→18:00)
[2021-05-18] MEDS: IPRATROPIUM/ALBUTEROL 0.5-3(2.5)MG/3ML NEB HHN SCH ×6 (00:25→20:44)
[2021-05-18 05:15] LABS: BASOPHILS % 0.7 % (0.0-2.0); EOSINOPHILS % 5.9 % (0.0-5.0); HEMATOCRIT. 23.8 % (42.0-52.0); HEMOGLOBIN. 8.1 g/dL (14.0-18.0); LYMPHOCYTES % 7.8 % (20.0-50.0); MEAN CORPUSCULAR VOLUME 85.6 fL (80.0-94.0); MEAN PLATELET VOLUME 9.1 fl (7.4-10.4); MONOCYTES % 6.6 % (2.0-8.0); PLATELET 317 x1000/uL (130-400); RED BLOOD CELL COUNT 2.78 mill/uL (4.7-6.1); RED CELL DISTRIBUTION WIDTH 16.9 % (11.6-14.6)
[2021-05-18] MEDS: BLOOD SUGAR DIAGNOSTIC STRIP TEST SCH ×3 (05:41→18:49)
[2021-05-18] MEDS: GUAIFENESIN 200MG/10ML SUGAR FREE UDC PO SCH ×4 (06:00→21:26)
[2021-05-18] MEDS: DEXTROSE 5% WATER 1,000 ML IV SCH ×3 (06:00→16:18)
[2021-05-18] MEDS: FERROUS SULFATE 325MG TABLET PO SCH ×3 (08:57→17:54)
[2021-05-18] MEDS: OXYMETAZOLINE HCL NASAL SPRAY 15ML BOTHNSTRLS SCH ×2 (08:58→21:26)
[2021-05-18] MEDS: LOPERAMIDE 2MG/15ML UDC GT SCH ×3 (08:58→21:00)
[2021-05-18] MEDS ORDERED: POTASSIUM CHLORIDE INJ 40 MEQ in DEXT 5% WATER 250 ML IV SCH (09:00)
[2021-05-18] MEDS: POTASSIUM CHLORIDE 20MEQ TABLET SR PO SCH ×2 (09:00→21:27)
[2021-05-18] MEDS ORDERED: MAGNESIUM 2 G PREMIX 50 ML IV SCH (09:00)
[2021-05-18] MEDS: CEFEPIME 2,000 MG in DEXT 5% WATER 100 ML IV SCH ×2 (09:00→21:27)
[2021-05-18] MEDS: FAMOTIDINE 20MG TABLET PO SCH (09:02)
[2021-05-18] MEDS: INSULIN GLARGINE UD 100 UNITS/ML SYR SUBCUT SCH (10:01)
[2021-05-19] VITALS (10 sets, daily range): BP systolic 137–155; BP diastolic 76–98
[2021-05-19] MEDS: GUAIFENESIN 200MG/10ML SUGAR FREE UDC PO SCH ×4 (00:15→18:41)
[2021-05-19] MEDS: IPRATROPIUM/ALBUTEROL 0.5-3(2.5)MG/3ML NEB HHN SCH ×6 (00:19→20:52)
[2021-05-19] MEDS: BLOOD SUGAR DIAGNOSTIC STRIP TEST SCH ×4 (00:47→18:38)
[2021-05-19] MEDS: DEXTROSE 5% WATER 1,000 ML IV SCH ×3 (04:10→23:53)
[2021-05-19 05:38] LABS: EOSINOPHILS % 7.8 % (0.0-5.0); HEMATOCRIT. 24.5 % (42.0-52.0); HEMOGLOBIN. 8.4 g/dL (14.0-18.0); LYMPHOCYTES % 9.7 % (20.0-50.0); MEAN CORPUSCULAR HEMOGLOBIN 28.8 pg (28.0-32.0); MEAN CORPUSCULAR VOLUME 84.3 fL (80.0-94.0); MEAN PLATELET VOLUME 8.9 fl (7.4-10.4); MONOCYTES % 7.7 % (2.0-8.0); NEUTROPHILS % 73.8 % (40.0-76.0); PLATELET 330 x1000/uL (130-400); RED BLOOD CELL COUNT 2.91 mill/uL (4.7-6.1); RED CELL DISTRIBUTION WIDTH 16.8 % (11.6-14.6)
[2021-05-19] MEDS: INSULIN LISPRO 100 UNITS/ML SUBCUT SCH ×4 (06:00→18:00)
[2021-05-19 06:09] LABS: CHLORIDE 120 mEq/L (98-107)
[2021-05-19 06:22] LABS: PHOSPHORUS 2.6 mg/dL (2.5-4.9)
[2021-05-19] MEDS: FERROUS SULFATE 325MG TABLET PO SCH ×3 (08:00→18:37)
[2021-05-19 08:52] LABS: BG BASE EXCESS 0.4 mmol/L (-2.0-2.0); BG CARBOXYHEMOGLOBIN 0.1 % (0.5-1.5); BG DEOXYHEMOGLOBIN 1.6 % (0.0-5.0); BG FRACTION INSPIRED OXYGEN 35; BG METHEMOGLOBIN 0.2 % (0.0-1.5); BG OXYGEN SATURATION 98.4 % (92.0-98.5); BG OXYHEMOGLOBIN 98.1 % (94.0-97.0); BG PCO2 33.9 mmHg (35.0-45.0); BG PH 7.467 (7.350-7.450); BG PO2 112.6 mmHg (75.0-100.0); BG SAMPLE SITE RIGHT RADIAL; BG TOTAL HEMOGLOBIN 8.5 g/dL (12.0-18.0); BG VENT MODE VENT - AC
[2021-05-19] MEDS: POTASSIUM CHLORIDE 20MEQ TABLET SR PO SCH ×2 (09:00→20:32)
[2021-05-19] MEDS: OXYMETAZOLINE HCL NASAL SPRAY 15ML BOTHNSTRLS SCH ×2 (09:00→20:56)
[2021-05-19] MEDS: LOPERAMIDE 2MG/15ML UDC GT SCH ×2 (09:00→20:31)
[2021-05-19] MEDS: CEFEPIME 2,000 MG in DEXT 5% WATER 100 ML IV SCH ×2 (11:24→20:32)
[2021-05-19] MEDS: FAMOTIDINE 20MG TABLET PO SCH (11:25)
[2021-05-19] MEDS: INSULIN GLARGINE UD 100 UNITS/ML SYR SUBCUT SCH (11:29)
[2021-05-19] MEDS: MORPHINE SULFATE 2 MG/ML CPJ (NOT FOR IM USE) IV PRN ×2 (13:34→18:32)
[2021-05-19] MEDS: METOPROLOL TARTRATE 25MG TABLET PO SCH (20:34)
[2021-05-20] VITALS (12 sets, daily range): BP systolic 131–168; BP diastolic 76–128
[2021-05-20] MEDS: IPRATROPIUM/ALBUTEROL 0.5-3(2.5)MG/3ML NEB HHN SCH ×5 (00:20→20:14)
[2021-05-20] MEDS: GUAIFENESIN 200MG/10ML SUGAR FREE UDC PO SCH ×5 (01:10→23:51)
[2021-05-20] MEDS: BLOOD SUGAR DIAGNOSTIC STRIP TEST SCH ×5 (05:23→23:41)
[2021-05-20] MEDS: INSULIN LISPRO 100 UNITS/ML SUBCUT SCH ×5 (05:23→23:41)
[2021-05-20 07:14] LABS: CHLORIDE 117 mEq/L (98-107)
[2021-05-20 07:16] LABS: BASOPHILS % 0.9 % (0.0-2.0); EOSINOPHILS % 7.4 % (0.0-5.0); HEMATOCRIT. 22.8 % (42.0-52.0); LYMPHOCYTES % 11.8 % (20.0-50.0); MEAN CORPUSCULAR HEMOGLOBIN 29.9 pg (28.0-32.0); MEAN CORPUSCULAR VOLUME 85.6 fL (80.0-94.0); MEAN PLATELET VOLUME 9.1 fl (7.4-10.4); MONOCYTES % 7.8 % (2.0-8.0); NEUTROPHILS % 72.1 % (40.0-76.0); PLATELET 325 x1000/uL (130-400); RED BLOOD CELL COUNT 2.66 mill/uL (4.7-6.1); RED CELL DISTRIBUTION WIDTH 17.1 % (11.6-14.6)
[2021-05-20 07:20] LABS: PHOSPHORUS 2.6 mg/dL (2.5-4.9)
[2021-05-20] MEDS: CEFEPIME 2,000 MG in DEXT 5% WATER 100 ML IV SCH ×2 (08:39→20:11)
[2021-05-20] MEDS: LOPERAMIDE 2MG/15ML UDC GT SCH ×2 (08:39→20:11)
[2021-05-20] MEDS: POTASSIUM CHLORIDE 20MEQ TABLET SR PO SCH ×2 (08:39→20:10)
[2021-05-20] MEDS: FAMOTIDINE 20MG TABLET PO SCH (08:40)
[2021-05-20] MEDS: FERROUS SULFATE 325MG TABLET PO SCH ×3 (08:40→18:01)
[2021-05-20] MEDS: METOPROLOL TARTRATE 25MG TABLET PO SCH ×2 (08:40→20:11)
[2021-05-20] MEDS: OXYMETAZOLINE HCL NASAL SPRAY 15ML BOTHNSTRLS SCH ×2 (08:41→23:41)
[2021-05-20] MEDS: DEXTROSE 5% WATER 1,000 ML IV SCH ×2 (08:41→23:51)
[2021-05-20] MEDS: INSULIN GLARGINE UD 100 UNITS/ML SYR SUBCUT SCH (09:06)
[2021-05-20] MEDS ORDERED: POTASSIUM CHLORIDE INJ 40 MEQ in DEXT 5% WATER 250 ML IV NR (10:00)
[2021-05-21] VITALS (12 sets, daily range): BP systolic 135–169; BP diastolic 67–92
[2021-05-21] MEDS: IPRATROPIUM/ALBUTEROL 0.5-3(2.5)MG/3ML NEB HHN SCH ×5 (04:00→20:46)
[2021-05-21] MEDS: GUAIFENESIN 200MG/10ML SUGAR FREE UDC PO SCH ×4 (05:56→23:04)
[2021-05-21] MEDS: BLOOD SUGAR DIAGNOSTIC STRIP TEST SCH ×4 (05:56→23:52)
[2021-05-21] MEDS: INSULIN LISPRO 100 UNITS/ML SUBCUT SCH ×4 (05:57→23:52)
[2021-05-21 06:12] LABS: BASOPHILS % 0.9 % (0.0-2.0); EOSINOPHILS % 7.1 % (0.0-5.0); HEMATOCRIT. 24.1 % (42.0-52.0); HEMOGLOBIN. 8.1 g/dL (14.0-18.0); LYMPHOCYTES % 13.9 % (20.0-50.0); MEAN CORPUSCULAR HEMOGLOBIN 28.6 pg (28.0-32.0); MEAN CORPUSCULAR VOLUME 85.8 fL (80.0-94.0); MEAN PLATELET VOLUME 9.1 fl (7.4-10.4); MONOCYTES % 8.1 % (2.0-8.0); PLATELET 340 x1000/uL (130-400); RED BLOOD CELL COUNT 2.81 mill/uL (4.7-6.1); RED CELL DISTRIBUTION WIDTH 17.1 % (11.6-14.6)
[2021-05-21 06:24] LABS: CHLORIDE 112 mEq/L (98-107)
[2021-05-21] MEDS: CEFEPIME 2,000 MG in DEXT 5% WATER 100 ML IV SCH ×2 (08:43→20:12)
[2021-05-21] MEDS: LOPERAMIDE 2MG/15ML UDC GT SCH ×2 (08:43→20:30)
[2021-05-21] MEDS: POTASSIUM CHLORIDE 20MEQ TABLET SR PO SCH ×2 (08:44→20:30)
[2021-05-21] MEDS: METOPROLOL TARTRATE 25MG TABLET PO SCH ×2 (08:44→20:31)
[2021-05-21] MEDS: FERROUS SULFATE 325MG TABLET PO SCH ×3 (08:44→18:31)
[2021-05-21] MEDS: FAMOTIDINE 20MG TABLET PO SCH (08:44)
[2021-05-21] MEDS: OXYMETAZOLINE HCL NASAL SPRAY 15ML BOTHNSTRLS SCH ×2 (08:52→20:33)
[2021-05-21] MEDS: DEXTROSE 5% WATER 1,000 ML IV SCH ×2 (08:53→14:36)
[2021-05-21] MEDS: INSULIN GLARGINE UD 100 UNITS/ML SYR SUBCUT SCH (10:21)
[2021-05-21] MEDS ORDERED: POTASSIUM CHLORIDE INJ 40 MEQ in DEXT 5% WATER 250 ML IV ONE (11:30)
[2021-05-21] MEDS: MORPHINE SULFATE 2 MG/ML CPJ (NOT FOR IM USE) IV PRN (11:44)
[2021-05-21] MEDS ORDERED: POTASSIUM PHOS,M-BASIC-D-BASIC 20 MMOL in DEXT 5% WATER 243.3333 ML IV ONE (12:30)
[2021-05-21] MEDS: AMLODIPINE 5MG TABLET PO SCH (15:31)
[2021-05-22] VITALS (12 sets, daily range): BP systolic 127–151; BP diastolic 76–97
[2021-05-22] MEDS: IPRATROPIUM/ALBUTEROL 0.5-3(2.5)MG/3ML NEB HHN SCH ×6 (00:47→21:01)
[2021-05-22] MEDS: DEXTROSE 5% WATER 1,000 ML IV SCH ×2 (03:12→14:41)
[2021-05-22] MEDS: GUAIFENESIN 200MG/10ML SUGAR FREE UDC PO SCH ×4 (05:36→23:04)
[2021-05-22 05:43] LABS: BASOPHILS % 1.1 % (0.0-2.0); EOSINOPHILS % 7.4 % (0.0-5.0); HEMATOCRIT. 22.5 % (42.0-52.0); HEMOGLOBIN. 7.7 g/dL (14.0-18.0); LYMPHOCYTES % 13.7 % (20.0-50.0); MEAN CORPUSCULAR HEMOGLOBIN 29.3 pg (28.0-32.0); MEAN CORPUSCULAR VOLUME 85.7 fL (80.0-94.0); MEAN PLATELET VOLUME 8.9 fl (7.4-10.4); MONOCYTES % 9.2 % (2.0-8.0); NEUTROPHILS % 68.6 % (40.0-76.0); PLATELET 354 x1000/uL (130-400); RED BLOOD CELL COUNT 2.62 mill/uL (4.7-6.1); RED CELL DISTRIBUTION WIDTH 16.9 % (11.6-14.6)
[2021-05-22] MEDS: INSULIN LISPRO 100 UNITS/ML SUBCUT SCH ×3 (06:00→17:19)
[2021-05-22 06:23] LABS: CHLORIDE 111 mEq/L (98-107)
[2021-05-22 06:30] LABS: PHOSPHORUS 2.2 mg/dL (2.5-4.9)
[2021-05-22] MEDS: BLOOD SUGAR DIAGNOSTIC STRIP TEST SCH ×3 (06:32→17:19)
[2021-05-22] MEDS: LOPERAMIDE 2MG/15ML UDC GT SCH ×2 (08:51→20:45)
[2021-05-22] MEDS: FERROUS SULFATE 325MG TABLET PO SCH ×3 (08:51→17:24)
[2021-05-22] MEDS: METOPROLOL TARTRATE 25MG TABLET PO SCH ×2 (08:52→20:44)
[2021-05-22] MEDS: AMLODIPINE 5MG TABLET PO SCH (08:52)
[2021-05-22] MEDS: OXYMETAZOLINE HCL NASAL SPRAY 15ML BOTHNSTRLS SCH ×2 (08:52→20:45)
[2021-05-22] MEDS: POTASSIUM CHLORIDE 20MEQ TABLET SR PO SCH ×2 (08:52→20:43)
[2021-05-22] MEDS: INSULIN GLARGINE UD 100 UNITS/ML SYR SUBCUT SCH (10:17)
[2021-05-22] MEDS ORDERED: MAGNESIUM 2 G PREMIX 50 ML IV NR (11:00)
[2021-05-22] MEDS ORDERED: POTASSIUM PHOS,M-BASIC-D-BASIC 15 MMOL in DEXT 5% WATER 245 ML IV NR (11:00)
[2021-05-22] MEDS: MORPHINE SULFATE 2 MG/ML CPJ (NOT FOR IM USE) IV PRN (15:57)
[2021-05-22] MEDS ORDERED: POTASSIUM CHLORIDE INJ 40 MEQ in DEXT 5% WATER 250 ML IV NR (16:00)
[2021-05-22 19:48] LABS: BG BASE EXCESS 6.9 mmol/L (-2.0-2.0); BG CARBOXYHEMOGLOBIN 0.4 % (0.5-1.5); BG DEOXYHEMOGLOBIN 16.4 % (0.0-5.0); BG FRACTION INSPIRED OXYGEN 35; BG HCO3 ACT 31.2 mmol/L (22.0-26.0); BG METHEMOGLOBIN 0.4 % (0.0-1.5); BG OXYGEN SATURATION 83.5 % (92.0-98.5); BG OXYHEMOGLOBIN 82.8 % (94.0-97.0); BG PH 7.469 (7.350-7.450); BG PO2 45.8 mmHg (75.0-100.0); BG SAMPLE SITE ALINE; BG TOTAL HEMOGLOBIN 8.7 g/dL (12.0-18.0); BG VENT MODE VENT - SIMV
[2021-05-23] VITALS (12 sets, daily range): BP systolic 140–171; BP diastolic 80–99
[2021-05-23] MEDS: IPRATROPIUM/ALBUTEROL 0.5-3(2.5)MG/3ML NEB HHN SCH ×6 (00:45→19:55)
[2021-05-23] MEDS: GUAIFENESIN 200MG/10ML SUGAR FREE UDC PO SCH ×3 (05:00→17:57)
[2021-05-23] MEDS: BLOOD SUGAR DIAGNOSTIC STRIP TEST SCH ×4 (05:24→17:57)
[2021-05-23 06:20] LABS: CHLORIDE 108 mEq/L (98-107)
[2021-05-23 06:29] LABS: PHOSPHORUS 2.8 mg/dL (2.5-4.9)
[2021-05-23 06:31] LABS: BASOPHILS % 0.8 % (0.0-2.0); EOSINOPHILS % 7.3 % (0.0-5.0); HEMATOCRIT. 22.5 % (42.0-52.0); HEMOGLOBIN. 7.9 g/dL (14.0-18.0); LYMPHOCYTES % 11.7 % (20.0-50.0); MEAN CORPUSCULAR HEMOGLOBIN 29.6 pg (28.0-32.0); MEAN CORPUSCULAR VOLUME 84.6 fL (80.0-94.0); MEAN PLATELET VOLUME 8.4 fl (7.4-10.4); MONOCYTES % 9.1 % (2.0-8.0); NEUTROPHILS % 71.1 % (40.0-76.0); PLATELET 352 x1000/uL (130-400); RED BLOOD CELL COUNT 2.66 mill/uL (4.7-6.1); RED CELL DISTRIBUTION WIDTH 17.2 % (11.6-14.6)
[2021-05-23 08:22] LABS: BG BASE EXCESS 8.3 mmol/L (-2.0-2.0); BG CARBOXYHEMOGLOBIN 0.1 % (0.5-1.5); BG DEOXYHEMOGLOBIN 1.6 % (0.0-5.0); BG FRACTION INSPIRED OXYGEN 40; BG HCO3 ACT 32.2 mmol/L (22.0-26.0); BG METHEMOGLOBIN 0.3 % (0.0-1.5); BG OXYGEN SATURATION 98.4 % (92.0-98.5); BG PCO2 41.6 mmHg (35.0-45.0); BG PH 7.506 (7.350-7.450); BG PO2 130.8 mmHg (75.0-100.0); BG SAMPLE SITE RIGHT RADIAL; BG TOTAL HEMOGLOBIN 8.6 g/dL (12.0-18.0); BG VENT MODE VENT - SIMV
[2021-05-23] MEDS: DEXTROSE 5% WATER 1,000 ML IV SCH (08:33)
[2021-05-23] MEDS: METOPROLOL TARTRATE 25MG TABLET PO SCH ×2 (09:26→21:08)
[2021-05-23] MEDS: POTASSIUM CHLORIDE 20MEQ TABLET SR PO SCH ×2 (09:26→21:08)
[2021-05-23] MEDS: LOPERAMIDE 2MG/15ML UDC GT SCH ×2 (09:26→21:08)
[2021-05-23] MEDS: AMLODIPINE 5MG TABLET PO SCH (09:26)
[2021-05-23] MEDS: FERROUS SULFATE 325MG TABLET PO SCH ×3 (09:26→17:57)
[2021-05-23] MEDS: OXYMETAZOLINE HCL NASAL SPRAY 15ML BOTHNSTRLS SCH ×2 (09:27→21:10)
[2021-05-23] MEDS ORDERED: DEXTROSE 50% WATER 50ML SYRINGE IV PRN (13:30)
[2021-05-23] MEDS ORDERED: NALOXONE HCL 0.4MG/ML VIAL IV PRN (15:00)
[2021-05-23] MEDS: INSULIN LISPRO 100 UNITS/ML SUBCUT SCH ×2 (18:00)
[2021-05-24] VITALS (12 sets, daily range): BP systolic 120–164; BP diastolic 62–97
[2021-05-24] MEDS: GUAIFENESIN 200MG/10ML SUGAR FREE UDC PO SCH ×4 (00:45→18:04)
[2021-05-24] MEDS: IPRATROPIUM/ALBUTEROL 0.5-3(2.5)MG/3ML NEB HHN SCH ×6 (01:23→19:59)
[2021-05-24] MEDS: DEXTROSE 5% WATER 1,000 ML IV SCH (04:45)
[2021-05-24] MEDS: BLOOD SUGAR DIAGNOSTIC STRIP TEST SCH ×4 (04:46→18:04)
[2021-05-24] MEDS: INSULIN LISPRO 100 UNITS/ML SUBCUT SCH ×4 (04:46→18:00)
[2021-05-24 05:14] LABS: PHOSPHORUS 2.5 mg/dL (2.5-4.9)
[2021-05-24 05:18] LABS: CHLORIDE 108 mEq/L (98-107)
[2021-05-24 06:34] LABS: HEMATOCRIT. 27.1 % (42.0-52.0); MEAN CORPUSCULAR HEMOGLOBIN 28.7 pg (28.0-32.0); MEAN CORPUSCULAR VOLUME 86.1 fL (80.0-94.0); MEAN PLATELET VOLUME 8.8 fl (7.4-10.4); PLATELET 409 x1000/uL (130-400); RED BLOOD CELL COUNT 3.15 mill/uL (4.7-6.1); RED CELL DISTRIBUTION WIDTH 17.3 % (11.6-14.6)
[2021-05-24] MEDS: FERROUS SULFATE 325MG TABLET PO SCH ×3 (08:00→18:00)
[2021-05-24] MEDS: ASCORBIC ACID 500 MG TABLET PO SCH (09:00)
[2021-05-24] MEDS: POTASSIUM CHLORIDE 20MEQ TABLET SR PO SCH ×2 (09:00→21:00)
[2021-05-24] MEDS: LOPERAMIDE 2MG/15ML UDC GT SCH ×2 (09:00→21:00)
[2021-05-24] MEDS: ZINC SULFATE 220 MG ( 50 ) CAPSULE PO SCH (09:00)
[2021-05-24] MEDS: AMLODIPINE 5MG TABLET PO SCH (09:00)
[2021-05-24] MEDS: METOPROLOL TARTRATE 25MG TABLET PO SCH ×2 (09:00→21:00)
[2021-05-24] MEDS ORDERED: MAGNESIUM 2 G PREMIX 50 ML IV NR (10:00)
[2021-05-24] MEDS: OXYMETAZOLINE HCL NASAL SPRAY 15ML BOTHNSTRLS SCH ×2 (10:32→21:24)
[2021-05-24 10:58] LABS: PLATELET ESTIMATE SLIGHTLY INCREASED
[2021-05-24] MEDS ORDERED: VANCOMYCIN 1500MG in DEXTROSE 5% WATER 250ML IV NR (16:00)
[2021-05-24] MEDS: MEROPENEM 1,000 MG in SODIUM CHLORIDE 0.9% 100 ML IV SCH (16:18)
[2021-05-24 16:24] LABS: INR 1.3; PARTIAL THROMBOPLASTIN TIME 32.8 sec (23.4-31.0); PROTHROMBIN TIME 13.9 sec (9.6-11.0)
[2021-05-25] VITALS (12 sets, daily range): BP systolic 122–167; BP diastolic 70–91
[2021-05-25] MEDS: MEROPENEM 1,000 MG in SODIUM CHLORIDE 0.9% 100 ML IV SCH ×4 (00:13→23:18)
[2021-05-25] MEDS: BLOOD SUGAR DIAGNOSTIC STRIP TEST SCH ×5 (00:14→23:16)
[2021-05-25] MEDS: GUAIFENESIN 200MG/10ML SUGAR FREE UDC PO SCH ×5 (00:15→23:18)
[2021-05-25] MEDS: IPRATROPIUM/ALBUTEROL 0.5-3(2.5)MG/3ML NEB HHN SCH ×6 (00:16→20:34)
[2021-05-25] MEDS: INSULIN LISPRO 100 UNITS/ML SUBCUT SCH ×5 (05:36→23:16)
[2021-05-25] MEDS: DEXTROSE 5% WATER 1,000 ML IV SCH (06:07)
[2021-05-25] MEDS: VANCOMYCIN 1 G PREMIX 200 ML IV SCH ×2 (06:35→17:50)
[2021-05-25 07:14] LABS: BASOPHILS % 0.5 % (0.0-2.0); EOSINOPHILS % 3.4 % (0.0-5.0); HEMATOCRIT. 27.3 % (42.0-52.0); LYMPHOCYTES % 7.8 % (20.0-50.0); MEAN CORPUSCULAR HEMOGLOBIN 29.1 pg (28.0-32.0); MEAN CORPUSCULAR VOLUME 88.3 fL (80.0-94.0); MEAN PLATELET VOLUME 8.5 fl (7.4-10.4); MONOCYTES % 9.5 % (2.0-8.0); NEUTROPHILS % 78.8 % (40.0-76.0); PLATELET 370 x1000/uL (130-400); RED CELL DISTRIBUTION WIDTH 17.7 % (11.6-14.6)
[2021-05-25 07:25] LABS: CHLORIDE 106 mEq/L (98-107)
[2021-05-25 07:55] LABS: PHOSPHORUS 2.9 mg/dL (2.5-4.9)
[2021-05-25] MEDS: OXYMETAZOLINE HCL NASAL SPRAY 15ML BOTHNSTRLS SCH ×2 (09:28→20:48)
[2021-05-25] MEDS: POTASSIUM CHLORIDE 20MEQ TABLET SR PO SCH ×2 (09:29→20:32)
[2021-05-25] MEDS: ZINC SULFATE 220 MG ( 50 ) CAPSULE PO SCH (09:29)
[2021-05-25] MEDS: LOPERAMIDE 2MG/15ML UDC GT SCH ×2 (09:29→20:32)
[2021-05-25] MEDS: METOPROLOL TARTRATE 25MG TABLET PO SCH ×2 (09:30→20:32)
[2021-05-25] MEDS: ASCORBIC ACID 500 MG TABLET PO SCH (09:31)
[2021-05-25] MEDS: FERROUS SULFATE 325MG TABLET PO SCH ×3 (09:31→17:50)
[2021-05-25] MEDS: AMLODIPINE 5MG TABLET PO SCH (09:31)
[2021-05-25] MEDS ORDERED: FENTANYL CITRATE/PF 50MCG/ML 2ML VIAL ONE (16:30)
[2021-05-25] MEDS ORDERED: MIDAZOLAM HCL 5 MG/5 ML VIAL ONE (16:30)
[2021-05-25] MEDS ORDERED: MIDAZOLAM HCL 5 MG/5 ML VIAL IV PRN (16:47)
[2021-05-25] MEDS ORDERED: FENTANYL CITRATE/PF 50MCG/ML 2ML VIAL IV PRN ×2 (16:48→18:10)
[2021-05-26] VITALS (11 sets, daily range): BP systolic 135–157; BP diastolic 84–98
[2021-05-26] MEDS: IPRATROPIUM/ALBUTEROL 0.5-3(2.5)MG/3ML NEB HHN SCH ×4 (00:01→12:15)
[2021-05-26] MEDS: DEXTROSE 5% WATER 1,000 ML IV SCH (03:36)
[2021-05-26] MEDS: INSULIN LISPRO 100 UNITS/ML SUBCUT SCH ×3 (06:00→17:41)
[2021-05-26] MEDS: VANCOMYCIN 1 G PREMIX 200 ML IV SCH ×2 (06:08→18:17)
[2021-05-26] MEDS: GUAIFENESIN 200MG/10ML SUGAR FREE UDC PO SCH ×3 (06:08→17:41)
[2021-05-26] MEDS: BLOOD SUGAR DIAGNOSTIC STRIP TEST SCH ×3 (06:09→17:29)
[2021-05-26 07:48] LABS: EOSINOPHILS % 6.5 % (0.0-5.0); HEMOGLOBIN. 8.7 g/dL (14.0-18.0); LYMPHOCYTES % 11.2 % (20.0-50.0); MEAN CORPUSCULAR HEMOGLOBIN 29.3 pg (28.0-32.0); MEAN CORPUSCULAR VOLUME 87.4 fL (80.0-94.0); MEAN PLATELET VOLUME 8.5 fl (7.4-10.4); MONOCYTES % 11.8 % (2.0-8.0); NEUTROPHILS % 69.5 % (40.0-76.0); PLATELET 341 x1000/uL (130-400); RED BLOOD CELL COUNT 2.97 mill/uL (4.7-6.1); RED CELL DISTRIBUTION WIDTH 17.3 % (11.6-14.6)
[2021-05-26 08:06] LABS: CHLORIDE 107 mEq/L (98-107)
[2021-05-26 08:23] LABS: PHOSPHORUS 2.4 mg/dL (2.5-4.9)
[2021-05-26] MEDS: MEROPENEM 1,000 MG in SODIUM CHLORIDE 0.9% 100 ML IV SCH ×2 (09:02→16:47)
[2021-05-26] MEDS: FERROUS SULFATE 325MG TABLET PO SCH ×3 (09:03→17:41)
[2021-05-26] MEDS: METOPROLOL TARTRATE 25MG TABLET PO SCH (09:03)
[2021-05-26] MEDS: LOPERAMIDE 2MG/15ML UDC GT SCH (09:03)
[2021-05-26] MEDS: POTASSIUM CHLORIDE 20MEQ TABLET SR PO SCH (09:03)
[2021-05-26] MEDS: AMLODIPINE 5MG TABLET PO SCH (09:03)
[2021-05-26] MEDS: OXYMETAZOLINE HCL NASAL SPRAY 15ML BOTHNSTRLS SCH (09:05)
[2021-05-26] MEDS ORDERED: MAGNESIUM 2 G PREMIX 50 ML IV NR (10:30)
[2021-05-26] MEDS ORDERED: POTASSIUM PHOS,M-BASIC-D-BASIC 15 MMOL in DEXT 5% WATER 245 ML IV NR (11:00)
[2021-05-26] MEDS ORDERED: POTASSIUM CHLORIDE INJ 40 MEQ in DEXT 5% WATER 250 ML IV NR (16:00)
== END 2021-05-26 23:35 | disposition short-term general hospital (02) | DRG 3 ==
LOC: ER 06:25 → MICUSO 08:26 → EDBEDREQ 08:35 → EDBEDREQSVC 08:35 → MICUSO 04-15 00:08 → 5EST 05-09 22:30
PROVIDERS: ADMIT Internal Medicine; ATTEND Internal Medicine
PROC: 5A09357 Assistance with Respiratory Ventilation, Less than 24 Consecutive Hours, Continuous Positive Airway Pressure (ICD-10-PCS; 2021-04-14)
PROC: 5A09357 Assistance with Respiratory Ventilation, Less than 24 Consecutive Hours, Continuous Positive Airway Pressure (ICD-10-PCS; 2021-04-15)
PROC: 5A09457 Assistance with Respiratory Ventilation, 24-96 Consecutive Hours, Continuous Positive Airway Pressure (ICD-10-PCS; 2021-04-15)
PROC: 5A09357 Assistance with Respiratory Ventilation, Less than 24 Consecutive Hours, Continuous Positive Airway Pressure (ICD-10-PCS; 2021-04-17)
PROC: 5A1955Z Respiratory Ventilation, Greater than 96 Consecutive Hours (ICD-10-PCS; principal; 2021-04-18)
PROC: 5A09357 Assistance with Respiratory Ventilation, Less than 24 Consecutive Hours, Continuous Positive Airway Pressure (ICD-10-PCS; 2021-04-18)
PROC: 5A0935A Assistance with Respiratory Ventilation, Less than 24 Consecutive Hours, High Flow/Velocity Cannula (ICD-10-PCS; 2021-04-18)
PROC: 0BH17EZ Insertion of Endotracheal Airway into Trachea, Via Natural or Artificial Opening (ICD-10-PCS; 2021-04-18)
PROC: 05H533Z Insertion of Infusion Device into Right Subclavian Vein, Percutaneous Approach (ICD-10-PCS; 2021-04-18)
PROC: B546ZZA Ultrasonography of Right Subclavian Vein, Guidance (ICD-10-PCS; 2021-04-18)
PROC: 30233N1 Transfusion of Nonautologous Red Blood Cells into Peripheral Vein, Percutaneous Approach (ICD-10-PCS; 2021-05-03)
PROC: 0DH63UZ Insertion of Feeding Device into Stomach, Percutaneous Approach (ICD-10-PCS; 2021-05-04)
PROC: 0B110F4 Bypass Trachea to Cutaneous with Tracheostomy Device, Open Approach (ICD-10-PCS; 2021-05-05)
PROC: 0GTJ0ZZ Resection of Thyroid Gland Isthmus, Open Approach (ICD-10-PCS; 2021-05-05)
PROC: 05HY33Z Insertion of Infusion Device into Upper Vein, Percutaneous Approach (ICD-10-PCS; 2021-05-07)
PROC: 0DH63UZ Insertion of Feeding Device into Stomach, Percutaneous Approach (ICD-10-PCS; 2021-05-25)
PROC: 0DP6XUZ Removal of Feeding Device from Stomach, External Approach (ICD-10-PCS; 2021-05-25)
DX: A41.89 Other specified sepsis (principal); J12.82 Pneumonia due to coronavirus disease 2019; R65.21 Severe sepsis with septic shock; U07.1 COVID-19; J96.01 Acute respiratory failure with hypoxia; E43 Unspecified severe protein-calorie malnutrition; N17.0 Acute kidney failure with tubular necrosis; J80 Acute respiratory distress syndrome; E44.0 Moderate protein-calorie malnutrition; M62.82 Rhabdomyolysis; I47.1 Supraventricular tachycardia; J44.0 Chronic obstructive pulmonary disease with (acute) lower respiratory infection; G93.40 Encephalopathy, unspecified; E72.20 Disorder of urea cycle metabolism, unspecified; Z99.11 Dependence on respirator [ventilator] status; N39.0 Urinary tract infection, site not specified; K94.23 Gastrostomy malfunction; E87.0 Hyperosmolality and hypernatremia; E87.2 Acidosis; E66.9 Obesity, unspecified; E78.5 Hyperlipidemia, unspecified; B96.5 Pseudomonas (aeruginosa) (mallei) (pseudomallei) as the cause of diseases classified elsewhere; D50.0 Iron deficiency anemia secondary to blood loss (chronic); E11.22 Type 2 diabetes mellitus with diabetic chronic kidney disease; E87.6 Hypokalemia; N18.2 Chronic kidney disease, stage 2 (mild); Y83.8 Other surgical procedures as the cause of abnormal reaction of the patient, or of later complication, without mention of misadventure at the time of the procedure; K44.9 Diaphragmatic hernia without obstruction or gangrene; I25.10 Atherosclerotic heart disease of native coronary artery without angina pectoris; I13.10 Hypertensive heart and chronic kidney disease without heart failure, with stage 1 through stage 4 chronic kidney disease, or unspecified chronic kidney disease; E83.42 Hypomagnesemia; E87.5 Hyperkalemia; R13.12 Dysphagia, oropharyngeal phase; R74.01 Elevation of levels of liver transaminase levels; L89.326 Pressure-induced deep tissue damage of left buttock; I49.3 Ventricular premature depolarization; Z68.35 Body mass index [BMI] 35.0-35.9, adult; Z79.899 Other long term (current) drug therapy; Z88.8 Allergy status to other drugs, medicaments and biological substances; Z88.5 Allergy status to narcotic agent; Z95.2 Presence of prosthetic heart valve; Z95.1 Presence of aortocoronary bypass graft; Z87.11 Personal history of peptic ulcer disease; Z86.73 Personal history of transient ischemic attack (TIA), and cerebral infarction without residual deficits; Z83.3 Family history of diabetes mellitus; Z82.49 Family history of ischemic heart disease and other diseases of the circulatory system; Y92.89 Other specified places as the place of occurrence of the external cause; Z79.4 Long term (current) use of insulin
CPT/HCPCS: 31500; 36415; 36600; 71045; 76700; 76770; 76937; 78278; 80048; 80053; 80061; 80076; 80202; 80305; 81003; 82040; 82140; 82248; 82270; 82330; 82375; 82550; 82553; 82607; 82728; 82746; 82805; 82962; 83036; 83540; 83550; 83605; 83615; 83735; 84100; 84134; 84145; 84478; 84484; 85014; 85018; 85025; 85027; 85044; 85379; 85384; 86140; 86705; 86709; 86803; 86850; 86900; 86920; 87070; 87077; 87106; 87186; 87340; 87426; 93005; 93970; 94002; 94003; 94640; 94660; 94667; 97163; 99291; A6261; A9560; C1725; C1752; C1887; J0330; J0456; J0692; J0696; J1100; J1650; J1815; J2060; J2185; J2250; J2270; J2370; J2543; J2597; J2704; J2765; J3010; J3370; J3475; J3480; J3490; J7040; J7042; J7050; J7060; J7070; J7608; P9016; U0003; U0005; A4315